=== PATIENT | male | born 1975 | race Hispanic/Latino ===

== ENCOUNTER 2020-09-26 15:05 | Inpatient (IN) | payer OTHER ==
[2020-09-26 16:39] LABS: Absolute Lymphocytes (CBC) 0.9 K/uL (0.7-4.9); Basophils % 0.6 % (0-1.3); Hematocrit 28.3 % (39.6-49.0); Lymphocytes % 7.4 % (15.3-44.8); MPV 8.8 fL (7.6-11.3); RBC Red Blood Cell Count 3.01 M/uL (4.33-5.43)
[2020-09-26 16:40] LABS: Protime INR 1.2
[2020-09-26 17:14] LABS: ALT/SGPT 42 U/L (12-78); AST/SGOT 24 U/L (15-37); Albumin 3.1 g/dL (3.4-5.0); Alkaline Phosphatase 140 U/L (45-117); BUN Blood Urea Nitrogen 126 mg/dL (7-18); Bicarbonate 15 mmol/L (21-32); Bilirubin Direct < 0.1 mg/dL (0-0.2); Bilirubin Total 0.3 mg/dL (0.2-1.0); Glucose Level 92 mg/dL (74-106); Magnesium 1.6 mg/dL (1.8-2.4); NT PRO-BNP 2826 pg/mL (<125); Potassium 4.5 mmol/L (3.5-5.1); Protein, Total 7.5 g/dL (6.4-8.2); Sodium Level 138 mmol/L (136-145); Troponin (Emerg Dept Use Only) 0.02 ng/mL (0.0-0.045)
--- NOTE | 2020-09-26 17:14 | P.PN ---
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 Valle, Htn, & KADEN on CPAP, who had renal panel done on 09/25/20 which showed SCr 9.6 (GFR 6), BUN 119, acidosis, hypoCa, & hyperPO4, & urinalysis showed pyuria, admitted today for further eval & mngt. He told me today that he has had SOB, dec energy, dec appetite & nausea for the past wk. He agreed to hospital admission today. 1. F/u renal panel, iron panel , urine studies, renal US 2. F/u serum iPTH to assess for advanced CKD/ESRD 3. IV fluid hydration overnight unless clinically volume overloaded. 4. If w/ metabolic acidosis, give 1 liter isotonic IV bicarb, but correct hypocalcemia prior. 5. Renal diet Full consult tomorrow.
--- NOTE | 2020-09-26 17:23 | RAD REPORT ---
EXAM DESCRIPTION: Merry Single View09/26/2020 4:35 pm CLINICAL HISTORY: Shortness breath COMPARISON: 2015 FINDINGS: Upper lobe vessels are prominent indicative of pulmonary venous hypertension Lungs appear clear of straight. Heart is mildly to moderately enlarged
[2020-09-26] MEDS ORDERED: NA CHLORIDE 0.9% IV ONE (18:00)
[2020-09-26] MEDS ORDERED: CALCIUM GLUC IV ONE (18:00)
[2020-09-26] MEDS ORDERED: EPOETIN ALFA-EPBX 10,000 UNIT/ML VIAL SQ SCH (18:00)
--- NOTE | 2020-09-26 18:11 | RAD REPORT ---
EXAM DESCRIPTION: USExtrem Venous W Compress Bil09/26/2020 5:52 pm CLINICAL HISTORY: Leg swelling COMPARISON: 2017 FINDINGS: The common femoral, superficial femoral, popliteal and posterior tibial veins bilaterally are compressible and demonstrate augmentation. Doppler demonstrates good flow. IMPRESSION: No evidence of deep venous thrombosis involving either lower extremity.
--- NOTE | 2020-09-26 18:15 | EDPHYS ---
Physician Documentation [facility] Name: Homer Romo Age: 45 yrs Sex: Male : 1975 Arrival Date: 09/26/2020 Time: 15:08 Bed 16 Private MD: ED Physician Toby Pollard HPI: 09/26 16:15 This 45 yrs old Male presents to ER via Ambulatory with complaints of Kidney cp Issue. 16:15 worsening kidney disease. cp 16:15 Onset: The symptoms/episode began/occurred gradually. cp 16:15 The patient has shortness of breath at rest. cp 16:15 Duration: The symptoms are continuous, and are steadily getting worse. The patient's cp shortness of breath is aggravated by light activity. Associated signs and symptoms: Pertinent negatives: chest pain, productive cough, dizziness, fever. Historical: - Allergies: 15:20 No Known Allergies; ph - PMHx: 15:20 Sleep Apnea; Hypertensive disorder; Anxiety; ph - Immunization history:: Client reports receiving the 2nd dose of the Covid vaccine. - Social history:: Smoking status: Patient denies any tobacco usage or history of. ROS: 16:20 Eyes: Negative for injury, pain, redness, and discharge. cp 16:20 Constitutional: Negative for body aches, chills, fever, poor PO intake. 16:20 ENT: Negative for ear pain, sore throat, difficulty swallowing, difficulty handling secretions. 16:20 Cardiovascular: Positive for edema, Negative for chest pain, palpitations. 16:20 Respiratory: Positive for shortness of breath, at rest. Negative for cough, wheezing. 16:20 Abdomen/GI: Negative for abdominal pain, nausea, vomiting, and diarrhea. 16:20 Skin: Negative for rash. 16:20 Neuro: Negative for altered mental status, headache, syncope, weakness. 16:20 All other systems are negative. Exam: 16:25 Constitutional: The patient appears in no acute distress, alert, awake, cp non-diaphoretic, non-toxic, well developed, well nourished, obese. 16:25 Head/Face: Normocephalic, atraumatic. cp 16:25 Eyes: Periorbital structures: appear normal, Pupils: equal, round, and reactive to light and accomodation, Extraocular movements: intact throughout, Conjunctiva: normal, no exudate, no injection, Sclera: no appreciated abnormality, Lids and lashes: appear normal, bilaterally. 16:25 ENT: External ear(s): are unremarkable, Nose: is normal, Mouth: Lips: moist, Oral mucosa: moist, Posterior pharynx: Airway: no evidence of obstruction, patent. 16:25 Neck: ROM/movement: is normal, is supple, without pain, no range of motions limitations. 16:25 Chest/axilla: Inspection: normal, Palpation: is normal, no crepitus, no tenderness. 16:25 Cardiovascular: Rate: normal, Rhythm: regular, Edema: ankle edema, that is mild, JVD: is not appreciated. 16:25 Respiratory: the patient does not display signs of respiratory distress, Respirations: labored breathing, is not present, intercostal retractions, are absent, shallow respirations, that is mild, Breath sounds: are clear throughout, no decreased breath sounds, no stridor, no wheezing. 16:25 Abdomen/GI: Inspection: obese Palpation: abdomen is soft and non-tender, in all quadrants. 16:25 Back: pain, is absent, ROM is normal. 16:25 Skin: cellulitis, is not appreciated, no rash present. 16:25 Neuro: Orientation: to person, place \T\ time. Mentation: is normal, Cerebellar function: is grossly normal, Motor: moves all fours, strength is normal, Sensation: is normal. 16:27 ECG was reviewed by the Attending Physician. Vital Signs: 15:17 BP 132 / 83; Pulse 86; Resp 22; Temp 97.6; Pulse Ox 100% on R/A; Weight 121.56 kg; ph Height 5 ft. 6 in. (167.64 cm); Pain 0/10; 17:05 BP 139 / 72; Pulse 82; Resp 17; Pulse Ox 99% on R/A; tw2 18:12 BP 140 / 105; Pulse 89; Resp 17; Pulse Ox 98% on R/A; tw2 19:14 BP 135 / 86; Pulse 93; Resp 18 S; Pulse Ox 99% on R/A; ad5 15:17 Body Mass Index 43.26 (121.56 kg, 167.64 cm) ph MDM: 16:09 Patient medically screened. cp 18:15 Data reviewed: vital signs, nurses notes, lab test result(s), EKG, radiologic studies, cp plain films. 18:15 Test interpretation: by ED physician or midlevel provider: ECG, plain radiologic cp studies. Physician consultation: Alejo BARILLAS was called at 18:15, was contacted at 18:15, regarding admission, to the telemetry unit. patient's condition, and will see patient in ED, shortly. 09/26 16:13 Order name: Basic Metabolic Panel cp 09/26 16:13 Order name: CBC with Diff cp 09/26 16:13 Order name: LFT's cp 09/26 16:13 Order name: Magnesium cp 09/26 16:13 Order name: NT PRO-BNP; Complete Time: 17:16 cp 09/26 17:38 Interpretation: Abnormal: NT PRO-BNP 2826. cp 09/26 16:13 Order name: PT-INR; Complete Time: 16:56 cp 09/26 16:13 Order name: Troponin (emerg Dept Use Only) cp 09/26 16:14 Order name: Basic Metabolic Panel; Complete Time: 17:16 EDMS 09/26 17:17 Interpretation: Normal except: CL 109; CO2 15; BUN 126; CRE 9.71; GFR 6; CA 5.3. cp 09/26 16:14 Order name: CBC with Automated Diff; Complete Time: 16:56 EDMS 09/26 16:57 Interpretation: Normal except: WBC 12.10; RBC 3.01; HGB 9.4; HCT 28.3; MCV 93.7; JOELLEN% cp 75.3; LYM% 7.4; EOSINOPHIL % 8.4; NEUT A 9.1; EOSA 1.0. 09/26 16:14 Order name: Liver (Hepatic) Function; Complete Time: 17:16 EDMS 09/26 17:38 Interpretation: Normal except: ALK 140; ALB 3.1; GLOB 4.4; A/G 0.7. cp 09/26 16:14 Order name: Magnesium; Complete Time: 17:16 EDMS 09/26 17:17 Interpretation: Abnormal: MG 1.6. cp 09/26 16:14 Order name: Troponin (Emerg Dept Use Only); Complete Time: 17:16 EDMS 09/26 17:10 Order name: Ferritin EDCO 09/26 17:10 Order name: Potassium EDMS 09/26 16:13 Order name: XRAY Chest (1 view); Complete Time: 17:37 cp 09/26 16:14 Order name: US Extremity Venous W Compression Harsha; Complete Time: 18:37 cp 09/26 17:10 Order name: Osmolality, Urine EDMS 09/26 17:10 Order name: PTH Intact EDMS 09/26 17:10 Order name: Transferrin Sat/Iron Binding EDMS 09/26 17:10 Order name: Ur Protein EDMS 09/26 17:10 Order name: UR SODIUM EDMS 09/26 17:10 Order name: Vitamin D, 25 (OH), TOTAL EDMS 09/26 17:12 Order name: Magnesium EDMS 09/26 17:12 Order name: Renal Panel EDMS 09/26 17:12 Order name: CBC with Automated Diff EDMS 09/26 17:15 Order name: Urinalysis W/Microscopic EDMS 09/26 17:47 Order name: Phosphorus EDMS 09/26 17:50 Order name: Thyroid Stimulating Hormone EDMS 09/26 20:36 Order name: SARS-COV-2 RT PCR EDMS 09/26 16:13 Order name: EKG; Complete Time: 16:14 cp 09/26 16:13 Order name: Cardiac monitoring; Complete Time: 16:28 cp 09/26 16:13 Order name: EKG - Nurse/Tech; Complete Time: 16:28 cp 09/26 16:13 Order name: IV Saline Lock; Complete Time: 16:28 cp 09/26 16:13 Order name: Labs collected and sent; Complete Time: 16:28 cp 09/26 16:13 Order name: O2 Per Protocol; Complete Time: 16:28 cp 09/26 16:13 Order name: O2 Sat Monitoring; Complete Time: 16:28 cp 09/26 17:14 Order name: Renal Ultrasound-Complete; Complete Time: 18:37 EDMS 09/26 17:48 Order name: Echo without Doppler (2D) EDMS EC:27 Rate is 88 beats/min. Rhythm is regular. AL interval is normal. QRS interval is normal. cp QT interval is normal. T waves are Inverted in lead aVR. Interpreted by me. Reviewed by me. Administered Medications: 18:20 Drug: Lasix (furosemide) 80 mg Route: IVP; Site: left antecubital; tw2 18:44 Follow up: Response: No adverse reaction tw2 18:28 Drug: Calcium Gluconate 1 grams Route: IVPB; Infused Over: 60 mins; Site: left tw2 antecubital; 19:37 Follow up: Response: No adverse reaction; IV Status: Completed infusion ad5 Disposition: 09/27 07:06 Co-signature as Attending Physician, Toby Pollard MD I agree with the assessment and kdr plan of care. Disposition Summary: 09/26/20 18:14 Hospitalization Ordered Hospitalization Status: Inpatient Admission cp Provider: Andry Ayala cp Location: Telemetry/[facility] (Inpatient) cp Condition: Stable cp Problem: new cp Symptoms: are unchanged cp Bed/Room Type: Standard cp Room Assignment: 209(09/26/20 19:46) mw Diagnosis - End stage renal disease cp Forms: - Medication Reconciliation Form cp - SBAR form cp Signatures: Dispatcher [employer] EDMS Disha Croft RN RN mw Rittger, Kevin, MD MD kdr Alejo Andino, FRONT DESK TEAM MEMBER-C FRONT DESK TEAM MEMBER-Cla1 Estella Casarez RN RN ph Hay Tapia PA PA cp Erna Hill RN RN tw2 Kyree Pike ad5 Corrections: (The following items were deleted from the chart) 09/26 17:17 17:16 Normal except: CL 109; CO2 15; BUN 126; CRE 9.71; GFR 6. cp cp 19:33 19:25 CORONAVIRUS+LAB.TESHA ordered. EDCO EDMS 19:46 18:14 cp 23:38 09/25 16:20 Constitutional: Negative for body aches, chills, fever, poor PO intake, cp cp 09/26 23:38 09/25 16:20 Eyes: Negative for injury, pain, redness, and discharge, cp cp 09/26 23:38 09/25 16:20 ENT: Negative for ear pain, sore throat, difficulty swallowing, difficulty cp handling secretions, cp 09/26 23:38 09/25 16:20 Cardiovascular: Positive for edema, Negative for chest pain, palpitations, cp cp 09/26 23:38 09/25 16:20 Respiratory: Positive for shortness of breath, at rest. Negative for cough, cp wheezing, cp 09/26 23:38 09/25 16:20 Abdomen/GI: Negative for abdominal pain, nausea, vomiting, and diarrhea, cp cp 09/26 23:38 09/25 16:20 Neuro: Negative for altered mental status, headache, syncope, weakness, cp cp 09/26 22:09/25 16:20 Skin: Negative for rash, cp cp 09/26 22:09/25 16:20 All other systems are negative, cp cp
--- NOTE | 2020-09-26 18:15 | ER ---
Nurse's Notes [facility] Name: Homer Romo Age: 45 yrs Sex: Male : 1975 Arrival Date: 09/26/2020 Time: 15:08 Bed 16 Private MD: Diagnosis: End stage renal disease Presentation: 09/26 15:17 Chief complaint: Patient states: Sent by Dr Sharpe for decreased kidney function. ph Coronavirus screen: Client denies travel out of the [place] in the last 14 days. At this time, the client does not indicate any symptoms associated with coronavirus-19. Ebola Screen: No symptoms or risks identified at this time. Initial Sepsis Screen: Does the patient meet any 2 criteria? No. Patient's initial sepsis screen is negative. Does the patient have a suspected source of infection? No. Patient's initial sepsis screen is negative. Risk Assessment: Do you want to hurt yourself or someone else? Patient reports no desire to harm self or others. Onset of symptoms was September 26, 2020. 15:17 Method Of Arrival: Ambulatory ph 15:17 Acuity: EZRA 3 ph Historical: - Allergies: 15:20 No Known Allergies; ph - PMHx: 15:20 Sleep Apnea; Hypertensive disorder; Anxiety; ph - Immunization history:: Client reports receiving the 2nd dose of the Covid vaccine. - Social history:: Smoking status: Patient denies any tobacco usage or history of. Screenin:00 Abuse screen: Denies threats or abuse. Nutritional screening: No deficits noted. tw2 Tuberculosis screening: No symptoms or risk factors identified. Fall Risk None identified. Assessment: 16:05 General: Appears in no apparent distress. obese, well groomed, Behavior is calm, tw2 cooperative, appropriate for age. Pain: Denies pain. Neuro: Level of Consciousness is awake, alert, obeys commands, Oriented to person, place, time, situation. Cardiovascular: Patient's skin is warm and dry. Cardiovascular: Edema is 3+ to left lower thigh, left knee, left midcalf, left ankle, right lower thigh, right knee, right midcalf and right ankle. Respiratory: Airway is patent Respiratory effort is even, unlabored, Respiratory pattern is regular, symmetrical. GI: No signs and/or symptoms were reported involving the gastrointestinal system. Abdomen is non-distended, obese. : No signs and/or symptoms were reported regarding the genitourinary system. EENT: No signs and/or symptoms were reported regarding the EENT system. Derm: Musculoskeletal: Range of motion: intact in all extremities. 17:05 Reassessment: Patient appears in no apparent distress at this time. No changes from tw2 previously documented assessment. Patient and/or family updated on plan of care and expected duration. Pain level reassessed. Patient is alert, oriented x 3, equal unlabored respirations, skin warm/dry/pink. 17:25 Reassessment: US at bedside at this time, provider at bedside at this time. tw2 18:12 Reassessment: Patient appears in no apparent distress at this time. No changes from tw2 previously documented assessment. Patient and/or family updated on plan of care and expected duration. Pain level reassessed. Patient is alert, oriented x 3, equal unlabored respirations, skin warm/dry/pink. 19:14 Reassessment: Patient appears in no apparent distress at this time. Patient and/or ad5 family updated on plan of care and expected duration. Pain level reassessed. Patient is alert, oriented x 3, equal unlabored respirations, skin warm/dry/pink. Vital Signs: 15:17 BP 132 / 83; Pulse 86; Resp 22; Temp 97.6; Pulse Ox 100% on R/A; Weight 121.56 kg; ph Height 5 ft. 6 in. (167.64 cm); Pain 0/10; 17:05 BP 139 / 72; Pulse 82; Resp 17; Pulse Ox 99% on R/A; tw2 18:12 BP 140 / 105; Pulse 89; Resp 17; Pulse Ox 98% on R/A; tw2 19:14 BP 135 / 86; Pulse 93; Resp 18 S; Pulse Ox 99% on R/A; ad5 15:17 Body Mass Index 43.26 (121.56 kg, 167.64 cm) ph ED Course: 15:08 Patient arrived in ED. ds1 15:20 Triage completed. ph 15:21 Arm band placed on. ph 16:00 Erna Hill RN is Primary Nurse. tw2 16:00 Bed in low position. Call light in reach. Pulse ox on. NIBP on. tw2 16:05 Page, Hay, PA is PHCP. cp 16:05 Toby Pollard MD is Attending Physician. cp 16:35 XRAY Chest (1 view) In Process Unspecified. EDMS 17:16 Notified Nurse Practitioner and/or Physician Customs Brokerage Manager of a critical lab result(s), aa5 Creatinine 9.71 and Calcium 5.3. 17:51 US Extremity Venous W Compression Harsha In Process Unspecified. EDMS 17:51 Renal Ultrasound-Complete In Process Unspecified. EDMS 18:13 Andry Ayala MD is Hospitalizing Provider. cp 20:42 No provider procedures requiring assistance completed. Patient admitted, IV remains in ad5 place. Administered Medications: 18:20 Drug: Lasix (furosemide) 80 mg Route: IVP; Site: left antecubital; tw2 18:44 Follow up: Response: No adverse reaction tw2 18:28 Drug: Calcium Gluconate 1 grams Route: IVPB; Infused Over: 60 mins; Site: left tw2 antecubital; 19:37 Follow up: Response: No adverse reaction; IV Status: Completed infusion ad5 Outcome: 18:14 Decision to Hospitalize by Provider. cp 20:42 Admitted to Med/surg accompanied by nurse, via stretcher, with chart, Report called to ad5 MANOJ Lewis 20:42 Condition: stable 20:42 Instructed on the need for admit, Demonstrated understanding of instructions. 20:43 Patient left the ED. ad5 Signatures: Dispatcher [employer] EDGA Caroline Wall ds1 Loretta Melendez, RN RN aa5 Estella Casarez RN RN Hay Delarosa PA PA cp Erna Hill RN RN tw2 Kyree Pike ad5
--- NOTE | 2020-09-26 18:15 | RAD REPORT ---
EXAM DESCRIPTION: US - Renal Ultrasound-Complete - 09/26/2020 5:52 pm CLINICAL HISTORY: Chronic renal disease COMPARISON: None FINDINGS: Right kidney is poorly visualized. It appears to measure 9.5 centimeters with an increased echotexture. Hydronephrosis is not seen. Evaluation of the left kidney is nondiagnostic Bladder is poorly visualized IMPRESSION: Limited exam Increased right renal echotexture consistent with chronic disease.
[2020-09-26] MEDS ORDERED: FUROSEMIDE 100 MG/10 ML VIAL IV ONE (18:40)
[2020-09-26] MEDS ORDERED: CALCIUM GLUCONATE 1 GM IVPB 1 GM/50 ML BAG IV ONE (18:40)
[2020-09-26 19:20] LABS: Potassium 4.8 mmol/L (3.5-5.1)
--- NOTE | 2020-09-26 20:12 | P.HP ---
Certification for Inpatient Patient admitted to: Inpatient With expected LOS: >2 Midnights Patient will require the following post-hospital care: None Practitioner: I am a practitioner with admitting privileges, knowledge of patient current condition, hospital course, and medical plan of care. Services: Services provided to patient in accordance with Admission requirements found in Title 42 Section 412.3 of the Code of Federal Regulations Patient History Date of Service: 09/26/20 Primary Care Provider: Dr. Valle Reason for admission: Acute renal failure History of Present Illness: 45-year-old male with history of CKD 4, hypertension presents emergency department after having outpatient labs with elevated creatinine. Patient was evaluated in the emergency department, labs significant for white blood cell count 12.1 hemoglobin 9.4 hematocrit 28.3 BUN 126 creatinine 9.7 GFR 6 calcium 5.3, magnesium 1.6. Chest x-ray unremarkable BNP 2826. Case was discussed with nephrology who has placed additional orders for admission, patient will be diuresed overnight and likely will require dialysis. Allergies No Known Allergies Allergy (Unverified 01/19/17 23:31) - Past Medical/Surgical History -: Hypertension -: ESRD -: Knee surgery Psychosocial/ Personal History: Employed at the hospital, lives with family - Family History Mother -: Cancer Father -: Lung disease, Cancer, Kidney disease Brother -: Cancer Sister -: Cancer - Social History Smoking Status: Never smoker Alcohol use: No CD- Drugs: No Caffeine use: No Place of Residence: Home Review of Systems Unremarkable Physical Examination - Physical Exam General: Alert, In no apparent distress, Oriented x3 HEENT: Atraumatic, PERRLA, Mucous membr. moist/pink, EOMI, Sclerae nonicteric Neck: Supple, 2+ carotid pulse no bruit, No LAD, Without JVD or thyroid abnormality Respiratory: Clear to auscultation bilaterally, Normal air movement Cardiovascular: Regular rate/rhythm, Normal S1 S2 Gastrointestinal: Normal bowel sounds, No tenderness Musculoskeletal: No tenderness Integumentary: No rashes Neurological: Normal gait, Normal speech, Normal strength at 5/5 x4 extr, Normal tone, Normal affect Lymphatics: No axilla or inguinal lymphadenopathy - Studies Laboratory Data (last 24 hrs) 09/26/20 18:20: Potassium 4.8 09/26/20 16:27: PT 13.8 H, INR 1.20 09/26/20 16:27: WBC 12.10 H, Hgb 9.4 L, Hct 28.3 L, Plt Count 298 09/26/20 16:27: Sodium 138, Potassium 4.5, BUN 126 H, Creatinine 9.71 H*, Glucose 92, Magnesium 1.6 L, Total Bilirubin 0.3, AST 24, ALT 42, Alkaline Phosphatase 140 H Assessment and Plan - Plan Assessment Acute worsening of CKD 4 to ESRD Normocytic anemia Hypocalcemia Hypertension Plan Acute worsening of CKD 4 to ESRD: Case was discussed with nephrology, nep hrology prefers diuresis this evening with Lasix/metolazone, patient will likely require dialysis. Patient made to be NPO past midnight for possibility of need for dialysis catheter placement, SCDs for DVT prophylaxis. Appreciate further input from nephrology. Stable at this time, not hyperkalemia. Daily labs. Normocytic anemia: Likely related to CKD. Additional labs ordered. Hypocalcemia: Patient given calcium for nephrology, will monitor daily labs Hypertension: Continue medication adjust as necessary. Discharge Plan: Home Plan to discharge in: Greater than 2 days - Advance Directives Does patient have a Living Will: No Does patient have a Durable POA for Healthcare: No - Code Status/Comfort Care Code Status Assessed: Yes (Full code) Critical Care: No Time Spent Managing Pts Care (In Minutes): 55
[2020-09-26 20:14] LABS: Thyroid Stimulating Hormone 2.21 uIU/mL (0.360-3.740)
[2020-09-26 20:15] LABS: Phosphorus 10.1 mg/dL (2.5-4.9)
[2020-09-26] MEDS ORDERED: ONDANSETRON 4 MG/2 ML VIAL IV PRN (20:31)
[2020-09-26] MEDS ORDERED: ACETAMINOPHEN 500 MG TAB PO PRN (20:31)
[2020-09-26 21:16] LABS: Urine Appearance CLEAR (Clear); Urine Bilirubin NEGATIVE (Negative); Urine Blood 2+ (Negative); Urine Color YELLOW (Yellow); Urine Glucose NEGATIVE (Negative); Urine Protein 3+ (Negative); Urine Urobilinogen 0.2 mg/dL (0.2-1.0); Urine pH 5.5 (5.0-7.0)
[2020-09-26 21:47] LABS: Urine Bacteria <20 /HPF (NONE SEEN); Urine RBC <5 /HPF (NONE SEEN)
[2020-09-26] MEDS: METOLAZONE 5 MG TABLET PO SCH (21:53)
[2020-09-26] MEDS: NA CIT/CITRIC AC 30 ML ORAL UDC PO SCH (21:55)
[2020-09-26] MEDS: FUROSEMIDE 40 MG/4 ML VIAL IV SCH (21:56)
[2020-09-26] MEDS: ATORVASTATIN 20 MG TAB PO SCH (22:38)
[2020-09-26] MEDS: carvediloL 12.5 MG TAB PO SCH (22:38)
[2020-09-27 05:24] LABS: Absolute Lymphocytes (CBC) 0.9 K/uL (0.7-4.9); Basophils % 0.5 % (0-1.3); Hematocrit 25.9 % (39.6-49.0); Lymphocytes % 8.4 % (15.3-44.8); MPV 8.9 fL (7.6-11.3); RBC Red Blood Cell Count 2.78 M/uL (4.33-5.43)
[2020-09-27 05:35] LABS: Albumin 2.8 g/dL (3.4-5.0); Magnesium 1.6 mg/dL (1.8-2.4)
[2020-09-27 05:38] LABS: Phosphorus 10.2 mg/dL (2.5-4.9)
--- NOTE | 2020-09-27 05:56 | P.CNS ---
Date of Consult: 09/27/20 Reason for Consult: Renal failure Requesting Physician: Andry Ayala Primary Care Provider: Dr. Valle Chief Complaint: Acute renal failure History of Present Illness: 45M w/ PMHx of proteinuric CKD4, presumed to be 2/2 Htn nephrosclerosis vs obesity-related secondary FSGS, SCr 3.3 (GFR 21) in Dec 2019, primary nephro: Dr. Valle, Htn, & KADEN on CPAP, who had renal panel done on 09/25/20 which showed SCr 9.6 (GFR 6), BUN 119, acidosis, hypoCa, & hyperPO4, & urinalysis showed pyuria, now admitted for further eval & mngt. He reports having SOB, dec energy, dec appetite & nausea for the past wk. 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, lives with family - Family History Mother Medical History: Cancer Father Medical History: Lung disease, Cancer, Kidney disease Brother Medical History: Cancer Sister Medical History: Cancer - Social History Alcohol use: No CD- Drugs: No Caffeine use: No Place of Residence: Home Review of Systems General: Weakness Eyes: Unremarkable ENT: Unremarkable Respiratory: Shortness of Breath Cardiovascular: Unremarkable Gastrointestinal: Nausea, Unremarkable (Anorexia) Genitourinary: Unremarkable Musculoskeletal: Pedal edema Integumentary: Unremarkable Neurological: Weakness Lymphatics: Unremarkable Physical Examination Temp Pulse Resp BP Pulse Ox 97.9 F 99 H 20 129/79 96 09/26/20 20:44 09/26/20 22:38 09/26/20 20:44 09/26/20 22:38 09/26/20 20:44 General: In no apparent distress HEENT: Atraumatic, Normocephalic Neck: Supple, JVD not distended Respiratory: Crackles/rales, Other (symmetric chest expansion) Cardiovascular: Normal S1 S2, No rubs, No murmurs Gastrointestinal: Soft and benign, Non-distended Musculoskeletal: Swelling Integumentary: No warmth Neurological: Normal speech, Normal tone Lymphatics: No axilla or inguinal lymphadenopathy Urinary: Other (no bladder distention) External genitalia: Deferred Rectal: Deferred Laboratory Data (last 24 hrs) 09/26/20 18:20: Potassium 4.8 09/26/20 16:27: Phosphorus 10.1 H* 09/26/20 16:27: PT 13.8 H, INR 1.20 09/26/20 16:27: WBC 12.10 H, Hgb 9.4 L, Hct 28.3 L, Plt Count 298 09/26/20 16:27: Sodium 138, Potassium 4.5, BUN 126 H, Creatinine 9.71 H*, Glucose 92, Magnesium 1.6 L, Total Bilirubin 0.3, AST 24, ALT 42, Alkaline Phosphatase 140 H Conclusions/Impression: # CKD4/ESRD GFR today at 6 ml/min Avoid Na-containing IV fluid d/t high BNP continue diuretics as below Renal ultrasound shows advanced CKD findings with smaller sized kidneys Serum intact PTH level also significantly elevated indicative of advanced CKD Patient agreed to initiate chronic dialysis due to presence of uremic symptoms and volume overload Insert PermCath tomorrow morning Initiate chronic hemodialysis when PermCath is in place, HD daily for the first 3 days then 3 times per week thereafter Renal diet Monitor renal panel Preserve non-dominant LUE for AVF planning - avoid BP cuff, bld draws, intravascular cannulation # Anemia Normocytic, normal RDW F/u TSH & iron panel Retracrit SQ 1st dose received on 09/26/20 # Htn Monitor Avoid ACEI/ARB/MRA while not on maintenance dialysis # Volume overload BNP sig elevated Trop neg Lasix 80 mg IV bid + Metolazone 5 mg po daily Chronic hemodialysis to start tomorrow # Acidosis Bicitra 30 ml po qid # Hypocalcemia Ca gluc IV ordered # HyperPO4 Start sevelamer po tidwm # Secondary hyperPTH Start calcitriol po daily # Vit D deficiency Start D3 5000 IU po daily # HypoMg Monitor
[2020-09-27] MEDS: FUROSEMIDE 40 MG/4 ML VIAL IV SCH ×2 (08:41→16:34)
[2020-09-27] MEDS: METOLAZONE 5 MG TABLET PO SCH (08:42)
[2020-09-27] MEDS: NA CIT/CITRIC AC 30 ML ORAL UDC PO SCH ×4 (08:42→21:32)
[2020-09-27] MEDS: carvediloL 12.5 MG TAB PO SCH ×2 (08:42→21:32)
--- NOTE | 2020-09-27 10:42 | EKG ---
Test Date: 2020-09-26 Test Time: 16:20:44 [place] Floor Desk Clerk: JOZEF MEASUREMENT RESULTS: Intervals: Rate: 88 ND: 164 QRSD: 92 QT: 410 QTc: 496 [place]: P: 55 ND: 164 QRS: -26 T: 52 INTERPRETIVE STATEMENTS: Normal sinus rhythm Prolonged QT Abnormal ECG Compared to ECG 01/19/2017 21:32:34 Prolonged QT interval now present Sinus tachycardia no longer present Incomplete right bundle-branch block no longer present Left anterior fascicular block no longer present Myocardial infarct finding no longer present Electronically Signed On 09-27-20 10:41:10 CDT by Ang Zee
--- NOTE | 2020-09-27 14:39 | P.PN ---
Subjective Date of Service: 09/27/20 Primary Care Provider: Dr. Valle Chief Complaint: Acute renal failure Subjective: No new changes (feels about the same, no significant change. breathing ok, no pain, no change in urine output) Review of Systems 10-point ROS is otherwise unremarkable Physical Examination - Vital Signs Temperature: 98.0 F Blood Pressure: 111/62 Pulse: 88 Respirations: 21 Pulse Ox (%): 98 - Studies Laboratory Data (last 24 hrs) 09/26/20 18:20: Potassium 4.8 09/26/20 16:27: Phosphorus 10.1 H* 09/26/20 16:27: PT 13.8 H, INR 1.20 09/26/20 16:27: WBC 12.10 H, Hgb 9.4 L, Hct 28.3 L, Plt Count 298 09/26/20 16:27: Sodium 138, Potassium 4.5, BUN 126 H, Creatinine 9.71 H*, Glucose 92, Magnesium 1.6 L, Total Bilirubin 0.3, AST 24, ALT 42, Alkaline Phosphatase 140 H Assessment & Plan Physician Review Additional Text: Physical Exam General: Alert, NAD, AAOx3, morbidly obese HEENT: Normal conjunctiva, sclera anicteric Respiratory: Clear to auscultation bilaterally, Normal air movement Cardiovascular: Regular rate/rhythm, Normal S1 S2, 1+ edema, L>R Gastrointestinal: Soft, nontender, nondistended Musculoskeletal: No joint tenderness Integumentary: No rashes Problem list Acute worsening of CKD 4 to ESRD Normocytic anemia Hypocalcemia Hyperphosphatemia Hypertension -Nephrology consulted, continue Lasix/metolazone -will likely need dialysis. Nephrology to further discuss with patient today -Discussed with general surgery, would not have time for dialysis catheter placement today -Confirm home medications, restart as appropriate -unclear etiology of MELINA or CKD, pt has significant family history, denies diabetes or NSAID usage Dispo: anticipate hospitalization > 2 days, will likely need dialysis Time Spent Managing Pts Care (In Minutes): 35
[2020-09-27] MEDS ORDERED: CALCIUM GLUC 10% INJ 9.3 MEQ in NA CHLORIDE 0.9% 100 ML IV ONE (20:47)
[2020-09-27] MEDS: CALCITROL 0.25 MCG CAP PO SCH (21:33)
[2020-09-27] MEDS: SEVELAMER CARBONATE 800 MG TABLET PO SCH (21:33)
[2020-09-27] MEDS: ATORVASTATIN 20 MG TAB PO SCH (21:33)
[2020-09-28] MEDS ORDERED: CALCIUM GLUCONATE 1 GM IVPB 1 GM/50 ML BAG IV ONE ×2 (01:13→01:41)
--- NOTE | 2020-09-28 05:36 | P.PN ---
Subjective Date of Service: 09/28/20 Primary Care Provider: Dr. Valle Chief Complaint: Acute renal failure Patient seen and examined while he was receiving HD today. No complaints of increased shortness of breath. Physical Examination - Vital Signs Temperature: 98 F Blood Pressure: 130/61 Pulse: 74 Respirations: 19 Pulse Ox (%): 98 - Physical Exam General: Other (appears as stated age) HEENT: Atraumatic, Normocephalic Neck: Supple, JVD not distended Respiratory: Diminished Cardiovascular: No rubs, No murmurs Gastrointestinal: Soft and benign, Non-distended Musculoskeletal: Swelling Integumentary: No warmth Neurological: Normal speech, Normal tone Lymphatics: No axilla or inguinal lymphadenopathy Urinary: Other (no bladder distention) External genitalia: Deferred Rectal: Deferred Assessment And Plan - Plan # ESRD presumed to be 2/2 Htn nephrosclerosis vs obesity-related secondary FSGS Renal ultrasound shows advanced CKD findings with smaller sized kidneys Serum intact PTH level also significantly elevated indicative of advanced CKD Chronic HD initiated on 09/28/2020, HD 2 hours a day, HD 3 hours tomorrow, then HD 3 hours on day 3, then 3 times a week thereafter starting next week HD access: TDC Nephro-Gina by mouth daily Renal diet Dietitian consulted to help patient with renal diet education Follow-up with leather case finisher regarding outpatient dialysis placement Continue Lasix as below Monitor renal panel Preserve non-dominant LUE for AVF planning - avoid BP cuff, bld draws, intravascular cannulation # Anemia Normocytic, normal RDW TSH wnl Iron panel shows iron deficiency - start Ferrlecit 125 mg IV after HD 8 doses Cont Retracrit 10T u SQ 3x/wk, started on 09/26/20 # Htn Monitor Avoid ACEI/ARB/MRA while not on maintenance dialysis # Volume overload BNP sig elevated Trop neg Cont Lasix 20 mg po bid Further correction via dialysis # Acidosis Bicitra 30 ml po qid Further correction via dialysis # Hypocalcemia Ca gluc IV received today Further correction via dialysis # HyperPO4 Cont sevelamer po tidwm # Secondary hyperPTH Cont calcitriol po daily # Vit D deficiency Cont D3 5000 IU po daily Recheck serum 25OH D level in 3 months # HypoMg Received IV Mg repletion today Monitor/replete prn Physician Review Additional Text: Physical Exam General: Alert, NAD, AAOx3, morbidly obese HEENT: Normal conjunctiva, sclera anicteric Respiratory: Clear to auscultation bilaterally, Normal air movement Cardiovascular: Regular rate/rhythm, Normal S1 S2, 1+ edema, L>R Gastrointestinal: Soft, nontender, nondistended Musculoskeletal: No joint tenderness Integumentary: No rashes Problem list Acute worsening of CKD 4 to ESRD Normocytic anemia Hypocalcemia Hyperphosphatemia Hypertension -Nephrology consulted, continue Lasix/metolazone -will likely need dialysis. Nephrology to further discuss with patient today -Discussed with general surgery, would not have time for dialysis catheter placement today -Confirm home medications, restart as appropriate -unclear etiology of MELINA or CKD, pt has significant family history, denies diabetes or NSAID usage Dispo: anticipate hospitalization > 2 days, will likely need dialysis
[2020-09-28 06:28] LABS: MPV 9.2 fL (7.6-11.3); RBC Red Blood Cell Count 2.68 M/uL (4.33-5.43)
[2020-09-28 07:04] LABS: Albumin 2.7 g/dL (3.4-5.0); Magnesium 1.7 mg/dL (1.8-2.4); Phosphorus 9.6 mg/dL (2.5-4.9); Potassium 3.6 mmol/L (3.5-5.1)
[2020-09-28] MEDS: SEVELAMER CARBONATE 800 MG TABLET PO SCH ×3 (07:52→17:14)
[2020-09-28] MEDS: carvediloL 12.5 MG TAB PO SCH ×2 (07:52→23:02)
[2020-09-28] MEDS ORDERED: NA CHLORIDE 0.9% 500 ML ONE (08:36)
[2020-09-28] MEDS ORDERED: NS 0.9% VIAL 10 ML ONE ×2 (08:57→09:45)
[2020-09-28] MEDS ORDERED: NA CHLORIDE 0.9% 100 ML IV ONE (08:58)
[2020-09-28] MEDS: METOLAZONE 5 MG TABLET PO SCH (09:00)
[2020-09-28] MEDS: FUROSEMIDE 40 MG/4 ML VIAL IV SCH ×2 (09:00→17:14)
[2020-09-28] MEDS ORDERED: propofoL 200 MG/20 ML VIAL IV ONE ×2 (09:04→09:52)
[2020-09-28] MEDS ORDERED: LIDOCAINE 1% MPF 5 ML VIAL ONE (09:05)
[2020-09-28] MEDS ORDERED: FENTANYL CITR 100 MCG/2 ML ONE (09:05)
[2020-09-28] MEDS: CEFAZOLIN SODIUM 1 GM/VIAL ONE ×2 (09:20→09:35)
[2020-09-28] MEDS: HEPARIN 5000 UNIT/ML 1 ML VIAL ONE ×2 (09:32→09:33)
[2020-09-28] MEDS ORDERED: EPHEDRINE SULF 50 MG/ML VIAL ONE (09:45)
--- NOTE | 2020-09-28 09:47 | P.BOP ---
Preoperative diagnosis: ESRD Postoperative diagnosis: same Primary procedure: 1. Placement of hemosplit tunneled Hemodialysis catheter Secondary procedure: 2. Interpretation of fluoroscopy Other procedure(s): 3. Right neck ultrasound Estimated blood loss: <10cc Specimen: none Findings: as above Anesthesia: General Complications: None Transferred to: Recovery Room Condition: Good
[2020-09-28] MEDS ORDERED: HYDROCODONE/APAP 5/325 MG TAB PO PRN (09:58)
--- NOTE | 2020-09-28 10:30 | RAD REPORT ---
EXAM DESCRIPTION: RAD - Fluoroscopy <1 Hour - 09/28/2020 10:02 am CLINICAL HISTORY: HEMODIALYSIS CATH PLACEMENT COMPARISON: No comparisons FINDINGS: Seventeen intraoperative fluoroscopic images were obtained demonstrating placement of a ri ght IJ approach dialysis catheter. None demonstrate the final tip position. Dose: 37.5mGy. Fluoro time: 0.7 minutes IMPRESSION: Intraoperative fluoroscopic images from a right dialysis catheter placement. Reference f orthcoming chest radiograph for tip location which was not included in these images.
--- NOTE | 2020-09-28 10:48 | RAD REPORT ---
EXAM DESCRIPTION: RAD - Chest Single View - 09/28/2020 10:26 am CLINICAL HISTORY: S/P HD CATH INSERTION COMPARISON: Chest Single View dated 09/26/2020; Chest Pa And Lat (2 Views) dated 03/08/2016 FINDINGS: No evidence of edema or pneumonia. Cardiomegaly.No acute osseous abnormality. No significa nt pleural effusions or pneumothorax. Right IJ approach hemodialysis catheter with tip overlying the innominate vein. IMPRESSION: Right IJ approach hemodialysis catheter tip overlies the right innominate vein. Cardiome abelardo. No acute cardiopulmonary disease. No pneumothorax.
[2020-09-28] MEDS ORDERED: CALCIUM GLUC 10% INJ 9.3 MEQ in NA CHLORIDE 0.9% 100 ML IV ONE (11:00)
[2020-09-28] MEDS ORDERED: MAGNESIUM SULFATE 1 gm IVPB 1 GM/100 ML BAG IV ONE (11:01)
--- NOTE | 2020-09-28 11:28 | ECHO ---
HEIGHT: 5 ft 6 in WEIGHT: 310 lb 9.6 oz DATE OF STUDY: 09/27/[address]: Rey Le MD 2-DIMENSIONAL: YES M.MODE: YES DOPPLER: NO COLOR FLOW: NO TDS: NO PORTABLE: NO DEFINITY: NO BUBBLE STUDY: NO DIAGNOSIS: ASSESS FOR CONGESTIVE HEART FAILURE CARDIAC HISTORY: CATHERIZATION: SURGERY: PROSTHETIC VALVE: PACEMAKER: MEASUREMENTS (cm) DIASTOLIC (NORMALS) SYSTOLIC (NORMALS) IVSd 1.2 (0.6-1.2) LA Diam 4.0 (1.9-4.0) LVEF 69% LVIDd 5.6 (3.5-5.7) LVIDs 3.4 (2.0-3.5) %FS 39% LVPWd 1.2 (0.6-1.2) Ao Diam 2.9 (2.0-3.7) 2 DIMENSIONAL ASSESSMENT: RIGHT ATRIUM: NORMAL LEFT ATRIUM: NORMAL RIGHT VENTRICLE: NORMAL LEFT VENTRICLE: NORMAL TRICUSPID VALVE: NORMAL MITRAL VALVE: NORMAL PULMONIC VALVE: NORMAL AORTIC VALVE: NORMAL PERICARDIAL EFFUSION: NONE AORTIC ROOT: NORMAL LEFT VENTRICULAR WALL MOTION: NORMAL DOPPLER/COLOR FLOW: NOT REQUESTED. COMMENTS: NORMAL 2D ECHOCARDIOGRAM WITH DOPPLER. NO WALL MOTION ABNORMALITY. NO EFFUSION. TECHNOLOGIST: Margarita PAEZ
[2020-09-28] MEDS: CALCITROL 0.25 MCG CAP PO SCH (11:42)
[2020-09-28] MEDS: VITAMIN D 5,000 UNIT CAP PO SCH (11:42)
[2020-09-28] MEDS ORDERED: MANNITOL 25% 12.5 GM/50 ML VIAL IV PRN (11:47)
--- NOTE | 2020-09-28 12:49 | OP ---
Date of Procedure: 09/28/2020 Surgeon: Josh Guerra MD Preoperative Diagnosis: End-stage renal disease. Postoperative Diagnosis: End-stage renal disease. Procedures: 1.Placement of a HemoSplit tunneled hemodialysis catheter. 2.Interpretation of fluoroscopy. 3.Right neck ultrasound. Estimated Blood Loss: Less than 10 cc. Anesthesia: General plus local. Catheter: HemoSplit hemodialysis catheter. Indications: This is a case of a male, who comes to us with a renal failure, tunneled hemodialysis c atheter request. Benefits, alternatives, and risks were fully explained to the patient, which includ e, but not limited to infection, bleeding, damage to adjacent structures, anesthesia complication, he mothorax, pneumothorax, pericardiac tamponade, DVTs, pericarditis, AR and even . He also unders tands this may not relieve the symptoms. He might need more than one surgical intervention. He unde rstood, signed a consent. He understands this is temporary catheter. If he continues on permanent d ialysis, he has to go to a vascular surgeon who can put a peripheral access on him. He was advised t o remove this as soon as possible. He understood, signed a consent. Procedure In Detail: The patient was brought to the operating room, placed in supine position. Anes thesia was done without complication. Right neck and chest were prepped and draped in sterile fashio n. A time-out was called. The patient was placed in a lateral position. Right neck ultrasound was done to localize internal jugular vein. It looked viable and patent. At that moment, I proceeded to place an 18-gauge needle in the internal jugular vein at the first attempt. Guidewire was passed th rough. Needle was removed. Catheter was tunneled from the right upper chest into the neck incision. Under fluoroscopy, we put dilators through the guidewire and then an introducer sheath. The guidew emil was removed. The catheter was placed through the introducer sheath and introducer sheath was pee led off. That was done under fluoroscopy. Excellent backflow and inflow. The subcutaneous tissue, closed with a 3-0 chromic and the catheter was secured in place with 3-0 nylon. The patient tolerate d the procedure well. Chest x-ray was ordered stat in recovery room when he went there. Sponge coun t and instrument counts were correct. HM/MODL Voice ID: [id number] Report ID: [id number]
--- NOTE | 2020-09-28 17:28 | P.PN ---
Subjective Date of Service: 09/28/20 Primary Care Provider: Dr. Valle Chief Complaint: Acute renal failure Subjective: Improving (breathing better, swelling improved, no new complaints, dialysis cath placed today, tolerated HD) Review of Systems 10-point ROS is otherwise unremarkable Physical Examination - Vital Signs Temperature: 97.2 F Blood Pressure: 118/74 Pulse: 87 Respirations: 20 Pulse Ox (%): 98 Assessment & Plan Physician Review Additional Text: Physical Exam General: Alert, NAD, AAOx3, morbidly obese HEENT: Normal conjunctiva, sclera anicteric Respiratory: Clear to auscultation bilaterally, diminished bilaterally at bases Cardiovascular: Regular rate/rhythm, Normal S1 S2, 1+ edema L> trace R Gastrointestinal: Soft, nontender, nondistended Musculoskeletal: No joint tenderness Integumentary: No rashes Problem list Acute worsening of CKD 4 to ESRD, requiring HD Normocytic anemia, anemia of chronic disease Hypocalcemia Hyperphosphatemia Hypertension -Nephrology consulted, continue Lasix/metolazone -s/p dialysis cath 09/28, initial HD done 09/28, tolerated well -hep panel sent -unclear etiology of MELINA or CKD, pt has significant family history, denies diabetes or NSAID usage -echo 09/27 normal Dispo: anticipate hospitalization > 2 days, social services assistant consulted to assist with outpatient dialysis hep panel pending Time Spent Managing Pts Care (In Minutes): 35
[2020-09-28] MEDS ORDERED: EPOETIN ALFA-EPBX 10,000 UNIT/ML VIAL SQ SCH ×2 (20:00→22:00)
[2020-09-28] MEDS ORDERED: EPOETIN ALFA 10,000 UNIT/ML VIAL IV ONE (21:30)
[2020-09-28] MEDS ORDERED: EPOETIN ALFA 10,000 UNIT/ML VIAL SQ ONE (21:30)
[2020-09-28] MEDS: ATORVASTATIN 20 MG TAB PO SCH (23:02)
--- NOTE | 2020-09-29 05:53 | P.PN ---
Subjective Date of Service: 09/29/20 Primary Care Provider: Dr. Valle Chief Complaint: Acute renal failure Patient seen and examined while he was receiving HD today. No new complaints. Physical Examination - Vital Signs Temperature: 97.6 F Blood Pressure: 116/66 Pulse: 71 Respirations: 16 Pulse Ox (%): 95 - Physical Exam General: Other (appears as stated age) HEENT: Atraumatic, Normocephalic Neck: Supple, JVD not distended Respiratory: Normal air movement Cardiovascular: No rubs, No murmurs Gastrointestinal: Soft and benign, Non-distended Musculoskeletal: Swelling Integumentary: No warmth Neurological: Normal speech, Normal tone Urinary: Other (no bladder distention) External genitalia: Deferred Rectal: Deferred Assessment And Plan - Plan # ESRD presumed to be 2/2 Htn nephrosclerosis vs obesity-related secondary FSGS Has nephrotic range proteinuria w/ random UPCR 5g Renal ultrasound shows advanced CKD findings with smaller sized kidneys Serum intact PTH level also significantly elevated indicative of advanced CKD Chronic HD initiated on 09/28/2020, daily x 3, day 2 today HD tomorrow, then MWF starting next week HD access: TDC Nephro-Gina by mouth daily Renal diet Dietitian consulted to help patient with renal diet education Follow-up with case loader operator regarding outpatient dialysis placement Continue Lasix as below Monitor renal panel Preserve non-dominant LUE for AVF planning - avoid BP cuff, bld draws, intravascular cannulation # Anemia Normocytic, normal RDW TSH wnl Iron panel shows iron deficiency - started on Ferrlecit 125 mg IV after HD 8 doses Cont Retracrit 10T u SQ 3x/wk, started on 09/26/20 # Htn BP at goal Cont current BP regimen # Volume overload BNP sig elevated Trop neg Cont Lasix 20 mg po bid Further correction via dialysis # Acidosis Improved Bicitra received Further correction via dialysis # Hypocalcemia Ca gluc received Further correction via dialysis # HyperPO4 Cont sevelamer po tidwm # HypoMg Monitor/replete prn # Secondary hyperPTH Cont calcitriol po daily # Vit D deficiency Cont D3 5000 IU po daily Recheck serum 25OH D level in 3 months
[2020-09-29 06:07] LABS: Hematocrit 26.4 % (39.6-49.0); MPV 8.7 fL (7.6-11.3); RBC Red Blood Cell Count 2.79 M/uL (4.33-5.43)
[2020-09-29 06:36] LABS: Albumin 2.7 g/dL (3.4-5.0); Magnesium 1.8 mg/dL (1.8-2.4); Phosphorus 7.6 mg/dL (2.5-4.9); Potassium 3.5 mmol/L (3.5-5.1)
[2020-09-29] MEDS: carvediloL 12.5 MG TAB PO SCH ×2 (09:00→21:38)
[2020-09-29] MEDS: SEVELAMER CARBONATE 800 MG TABLET PO SCH ×3 (10:43→16:58)
[2020-09-29] MEDS: CALCITROL 0.25 MCG CAP PO SCH (10:43)
[2020-09-29] MEDS: MULTIVITAMINS,THERAPEUT 1 TAB PO SCH (10:43)
[2020-09-29] MEDS: FUROSEMIDE 20 MG TABLET PO SCH ×2 (10:43→16:58)
[2020-09-29] MEDS: VITAMIN D 5,000 UNIT CAP PO SCH (10:44)
--- NOTE | 2020-09-29 11:05 | P.PN ---
Subjective Date of Service: 09/29/20 Primary Care Provider: Dr. Valle Chief Complaint: Acute renal failure Subjective: Improving (Tolerated dialysis. Swelling improved, breathing more comfortably. urinating without issue) Review of Systems 10-point ROS is otherwise unremarkable Physical Examination - Vital Signs Temperature: 97.5 F Blood Pressure: 134/72 Pulse: 80 Respirations: 20 Pulse Ox (%): 100 Assessment & Plan Physician Review Additional Text: Physical Exam General: NAD, AAOx3, morbidly obese HEENT: Normal conjunctiva, sclera anicteric Respiratory: Clear to auscultation bilaterally, transmitted upper airway sounds Cardiovascular: Regular rate/rhythm, Normal S1 S2, trace-1+ edema bilaterally Gastrointestinal: Soft, nontender, nondistended Musculoskeletal: No joint tenderness Integumentary: No rashes Problem list Acute worsening of CKD 4 to ESRD, requiring HD Normocytic anemia, anemia of chronic disease Hypocalcemia, vit d deficiency Hyperphosphatemia Hypertension -Nephrology consulted, continue Lasix/metolazone -s/p dialysis cath 09/28, initial HD done 09/28, tolerated well -electrolyte management via dialysis/nephrology -hep panel sent -unclear etiology of MELINA or CKD, pt has significant family history, denies diabetes or NSAID usage, U/S with chronic disease -echo 09/27 normal -symptomatically much improved Dispo: social secretary consulted to assist with outpatient dialysis scheduling, hep panel pending anticipate dc home in next 24-48hrs Time Spent Managing Pts Care (In Minutes): 35
[2020-09-29] MEDS: SOD FERRIC GLUC COMPLX/SUCROSE 125 MG in NA CHLORIDE 0.9% 100 ML IV SCH (12:45)
[2020-09-29] MEDS: ATORVASTATIN 20 MG TAB PO SCH (21:38)
[2020-09-30 01:04] VITALS: BMI 50.0
[2020-09-30 05:40] LABS: Hematocrit 26.9 % (39.6-49.0); MPV 8.7 fL (7.6-11.3); RBC Red Blood Cell Count 2.87 M/uL (4.33-5.43)
[2020-09-30 06:03] LABS: Albumin 2.7 g/dL (3.4-5.0); Magnesium 1.8 mg/dL (1.8-2.4); Phosphorus 5.6 mg/dL (2.5-4.9); Potassium 3.4 mmol/L (3.5-5.1)
[2020-09-30] MEDS: VITAMIN D 5,000 UNIT CAP PO SCH (08:46)
[2020-09-30] MEDS: FUROSEMIDE 20 MG TABLET PO SCH ×2 (08:46→17:06)
[2020-09-30] MEDS: SEVELAMER CARBONATE 800 MG TABLET PO SCH ×3 (08:46→17:06)
[2020-09-30] MEDS: CALCITROL 0.25 MCG CAP PO SCH (08:46)
[2020-09-30] MEDS: carvediloL 12.5 MG TAB PO SCH ×2 (08:47→17:06)
[2020-09-30] MEDS: MULTIVITAMINS,THERAPEUT 1 TAB PO SCH (09:03)
--- NOTE | 2020-09-30 10:31 | P.PN ---
Subjective Date of Service: 09/30/20 Primary Care Provider: Dr. Valle Chief Complaint: Acute renal failure Subjective: Improving (feeling close to his baseline. tolerating HD. yesterday with a few seconds of bradycardia to 40, hypotension during dialysis - pt was asymptomatic. overnight HR: 60.) Review of Systems 10-point ROS is otherwise unremarkable Physical Examination - Vital Signs Temperature: 98.5 F Blood Pressure: 125/60 Pulse: 84 Respirations: 20 Pulse Ox (%): 98 Assessment & Plan Physician Review Additional Text: Physical Exam General: NAD, AAOx3, morbidly obese HEENT: Normal conjunctiva, sclera anicteric Respiratory: Clear to auscultation bilaterally, nonlabored on RA Cardiovascular: Regular rate/rhythm, Normal S1 S2, trace-1+ edema bilaterally Gastrointestinal: Soft, nontender, nondistended Problem list Acute worsening of CKD 4 to ESRD, requiring HD Normocytic anemia, anemia of chronic disease, iron deficiency Hypocalcemia, vit d deficiency Hyperphosphatemia Hypertension -decrease coreg to 6.25 from 12.5 BID -Nephrology consulted, continue Lasix -s/p dialysis cath 09/28, initial HD done 09/28, tolerated well -electrolyte management via dialysis/nephrology -hep panel sent / results pending -iv iron started 09/28 -unclear etiology of MELINA or CKD, pt has significant family history, denies diabetes or NSAID usage, U/S with chronic disease. workup per nephrology -echo 09/27 normal -symptomatically much improved Dispo: hospice social worker consulted to assist with outpatient dialysis scheduling, hep panel pending anticipate dc home on Monday 10/02 Time Spent Managing Pts Care (In Minutes): 35
[2020-09-30] MEDS: SOD FERRIC GLUC COMPLX/SUCROSE 125 MG in NA CHLORIDE 0.9% 100 ML IV SCH (12:15)
[2020-09-30] MEDS: ATORVASTATIN 20 MG TAB PO SCH (21:24)
--- NOTE | 2020-09-30 22:33 | PN ---
Date of Progress Note: 09/30/2020 Chief Complaint: Acute kidney injury. Patient needs dialysis. Dialysis was started for acute on ch ronic kidney injury. Review of Systems: Denies fever, chills. Physical Examination: General: No in acute distress. Eyes: Anicteric sclerae. EOMI. Ears, Nose, Mouth, and Throat: Oral mucosa moist. No pallor. Neck: Supple. No bruits. Lungs: Clear to auscultation bilaterally. Heart: S1, S2. Abdomen: Soft, benign, obese. Extremities: Edema present in both legs. Impression And Plan: Acute on chronic kidney injury. The patient is advancing to end-stage renal di sease. He presented to the hospital, who started dialysis. The patient has . Hypertensio n-related nephrosclerosis. Patient has nephrotic-range proteinuria. Ultrasound showed advanced environmental services aide robert kidney disease findings with smaller size kidneys. Serum intact PTH significantly elevated, whic h supports diagnosis of advanced chronic kidney and at this point patient remains dialysis dependent. We will continue dialysis on Friday, Friday, Friday. Today dialysis was scheduled for metabolic clearance and to obtain ultrafiltration. Continue renal diet and low-sodium diet. Monitor blood pressure. Adjust medication accordingly. EB/MODL Voice ID: [id number] Report ID: [id number]
[2020-10-01] MEDS: carvediloL 12.5 MG TAB PO SCH ×2 (05:23→16:47)
[2020-10-01 06:29] LABS: Albumin 2.9 g/dL (3.4-5.0); Bilirubin Total 0.3 mg/dL (0.2-1.0); Magnesium 1.8 mg/dL (1.8-2.4); Phosphorus 4.6 mg/dL (2.5-4.9); Potassium 3.4 mmol/L (3.5-5.1); Protein, Total 7.1 g/dL (6.4-8.2)
--- NOTE | 2020-10-01 08:24 | P.PN ---
Subjective Date of Service: 10/01/20 Primary Care Provider: Dr. Valle Chief Complaint: Acute renal failure Subjective: No new changes (doing well, tolerating HD, no new complaints) Review of Systems 10-point ROS is otherwise unremarkable Physical Examination - Vital Signs Temperature: 98.1 F Blood Pressure: 145/75 Pulse: 75 Respirations: 16 Pulse Ox (%): 98 Assessment & Plan Physician Review Additional Text: Physical Exam General: NAD, AAOx3, morbidly obese HEENT: Normal conjunctiva, sclera anicteric Respiratory: Clear to auscultation bilaterally, nonlabored on RA Cardiovascular: Regular rate/rhythm, Normal S1 S2, trace edema bilaterally Gastrointestinal: Soft, nontender, nondistended Neuro: moves all extremities Problem list Acute worsening of CKD 4 to ESRD, requiring HD initiation Normocytic anemia, anemia of chronic disease, iron deficiency Hypocalcemia, vit d deficiency Hyperphosphatemia Hypertension -decreased coreg to 6.25 from 12.5 BID on 09/30 - pt was noted to have bradycardic episodes - while asleep and one brief asymptomatic episode during dialysis -Nephrology consulted, continue Lasix /dialysis -s/p dialysis cath 09/28, initial HD done 09/28, tolerated well -electrolyte management via dialysis/nephrology -hep panel sent / results pending -iv iron started 09/28 -unclear etiology of MELINA or CKD, pt has significant family history, denies diabetes or NSAID usage, U/S with chronic disease. workup per nephrology -echo 09/27 normal -symptomatically much improved Dispo: drug abuse social worker consulted to assist with outpatient dialysis scheduling, hep panel pending anticipate dc home tomorrow, awaiting hep panel results Time Spent Managing Pts Care (In Minutes): 35
[2020-10-01] MEDS: FUROSEMIDE 20 MG TABLET PO SCH ×2 (09:41→16:47)
[2020-10-01] MEDS: SEVELAMER CARBONATE 800 MG TABLET PO SCH ×3 (09:41→16:46)
[2020-10-01] MEDS: VITAMIN D 5,000 UNIT CAP PO SCH (09:42)
[2020-10-01] MEDS: MULTIVITAMINS,THERAPEUT 1 TAB PO SCH (09:42)
[2020-10-01] MEDS: CALCITROL 0.25 MCG CAP PO SCH (09:42)
--- NOTE | 2020-10-01 19:31 | PN ---
Date of Progress Note: 10/01/2020 Chief Complaint: Acute kidney injury on advanced chronic kidney disease. The patient is dialysis de pendent. He will continue dialysis for end-stage renal disease. There is no evidence of renal funct ion recovery. Review of Systems: Denies fever, chills. Physical Examination: Lungs: Clear to auscultation bilaterally. Heart: S1, S2. Abdomen: Soft, benign. Extremities: Edema present in both legs. Impression/plan: 1.[id number] kidney injury. The patient is advancing to end-stage renal disease. Continue di alysis. During this admission, the patient was dialyzed via the catheter, which was placed for dialy sis access. Next dialysis is tomorrow. The patient has history of hypertensive kidney disease and n ephrotic range proteinuria. Ultrasound showed advanced chronic kidney disease. Kidney size is small . The patient likely has benign nephrosclerosis. The patient will need to have workup to rule out _ was older. The patient will continue vitamin D replacement and adjust medication according ly. 2.Monitor phosphorus level and adjust binders. EB/MODL Voice ID: [id number] Report ID: [id number]
[2020-10-01 20:14] LABS: HBsAG Nonreactive (Nonreactive)
[2020-10-01] MEDS: ATORVASTATIN 20 MG TAB PO SCH (21:03)
[2020-10-02] MEDS: carvediloL 12.5 MG TAB PO SCH (05:16)
[2020-10-02 06:03] LABS: Hematocrit 27.7 % (39.6-49.0); MPV 8.4 fL (7.6-11.3); RBC Red Blood Cell Count 2.94 M/uL (4.33-5.43)
[2020-10-02 06:20] LABS: Albumin 2.8 g/dL (3.4-5.0); Magnesium 1.8 mg/dL (1.8-2.4); Phosphorus 4.7 mg/dL (2.5-4.9); Potassium 3.5 mmol/L (3.5-5.1)
[2020-10-02] MEDS: CALCITROL 0.25 MCG CAP PO SCH (09:07)
[2020-10-02] MEDS: VITAMIN D 5,000 UNIT CAP PO SCH (09:07)
[2020-10-02] MEDS: SEVELAMER CARBONATE 800 MG TABLET PO SCH ×2 (09:07→12:11)
[2020-10-02] MEDS: FUROSEMIDE 20 MG TABLET PO SCH (09:08)
[2020-10-02] MEDS: MULTIVITAMINS,THERAPEUT 1 TAB PO SCH (09:08)
[2020-10-02 12:05] VITALS: BP 127/70; TEMP 99.2
[2020-10-02 12:46] VITALS: O2SAT 94
[2020-10-02] MEDS: SOD FERRIC GLUC COMPLX/SUCROSE 125 MG in NA CHLORIDE 0.9% 100 ML IV SCH (14:15)
--- NOTE | 2020-10-02 17:46 | P.DS ---
Admission Date: 09/26/20 Discharge Date: 10/02/20 Primary Care Provider: Dr. Valle Disposition: ROUTINE DISCHARGE Discharge Condition: GOOD Reason for Admission: Acute renal failure Consultations: Nephrology - Dr. Le, Dr. Johnson General Surgery - Dr. Guerra Procedures: CXR (09/26): FINDINGS: Upper lobe vessels are prominent indicative of pulmonary venous hypertension Lungs appear clear of straight. Heart is mildly to moderately enlarged Venous U/S (09/26): The common femoral, superficial femoral, popliteal and posterior tibial veins bilaterally are compressible and demonstrate augmentation. Doppler demonstrates good flow. IMPRESSION: No evidence of deep venous thrombosis involving either lower extremity. Renal U/S (09/26): Right kidney is poorly visualized. It appears to measure 9.5 centimeters with an increased echotexture. Hydronephrosis is not seen. Evaluation of the left kidney is nondiagnostic Bladder is poorly visualized IMPRESSION: Limited exam Increased right renal echotexture consistent with chronic disease. TTE (09/26): Normal 2D echocardiogram with Doppler. No wall motion abnormality. No effusion CXR(09/28): Right IJ approach hemodialysis catheter tip overlies the right innominate vein. Cardiomegaly. No acute cardiopulmonary disease. No pneumothorax. R IJ Dialysis catheter placement by Dr. Guerra (09/28) Problem list Acute worsening of CKD 4 to ESRD, requiring HD initiation Normocytic anemia, anemia of chronic disease, iron deficiency Hypocalcemia, vit d deficiency Hyperphosphatemia Hypertension Brief History of Present Illness: 45-year-old male with history of CKD 4, hypertension presents emergency department after having outpatient labs with elevated creatinine. Patient was evaluated in the emergency department, labs significant for white blood cell count 12.1 hemoglobin 9.4 hematocrit 28.3 BUN 126 creatinine 9.7 GFR 6 calcium 5.3, magnesium 1.6. Chest x-ray unremarkable BNP 2826. Case was discussed with nephrology who has placed additional orders for admission, patient will be diuresed overnight and likely will require dialysis. Hospital Course: Nephrology was consulted and discussed options with the patient. Hemodialysis catheter was placed by Dr. Guerra, patient underwent consecutive days of dialysis with improvement of his symptoms. He was set up with a chair time and discharged home. He was noted to be iron deficient and did receive few doses of IV iron. ESRD presumed to be secondary to hypertensive nephrosclerosis versus obesity related secondary FSGS. He does have several family members with CKD. His father required dialysis. Vital Signs/Physical Exam: Physical Exam General: NAD, AAOx3, morbidly obese HEENT: Normal conjunctiva, sclera anicteric Respiratory: Clear to auscultation bilaterally, nonlabored on RA Cardiovascular: Regular rate/rhythm, Normal S1 S2, trace edema bilaterally Gastrointestinal: Soft, nontender, nondistended Neuro: str 5/5 bilaterally Temp Pulse Resp BP Pulse Ox 99.2 F 81 20 127/70 94 10/02/20 12:00 10/02/20 12:00 10/02/20 12:00 10/02/20 12:00 10/02/20 12:00 Laboratory Data at Discharge: WBC 10.90 K/uL (4.3-10.9) 10/02/20 05:45 Hgb 9.7 g/dL (13.6-17.9) L 10/02/20 05:45 Hct 27.7 % (39.6-49.0) L 10/02/20 05:45 Plt Count 258 K/uL (152-406) 10/02/20 05:45 PT 13.8 SECONDS (9.5-12.5) H 09/26/20 16:27 INR 1.20 09/26/20 16:27 Sodium 138 mmol/L (136-145) 10/02/20 05:45 Potassium 3.5 mmol/L (3.5-5.1) 10/02/20 05:45 BUN 52 mg/dL (7-18) H 10/02/20 05:45 Creatinine 7.10 mg/dL (0.55-1.3) H* D 10/02/20 05:45 Glucose 87 mg/dL (74-106) 10/02/20 05:45 Phosphorus 4.7 mg/dL (2.5-4.9) 10/02/20 05:45 Magnesium 1.8 mg/dL (1.8-2.4) 10/02/20 05:45 Total Bilirubin 0.3 mg/dL (0.2-1.0) 10/01/20 05:11 AST 13 U/L (15-37) L 10/01/20 05:11 ALT 16 U/L (12-78) 10/01/20 05:11 Alkaline Phosphatase 120 U/L (45-117) H 10/01/20 05:11 Home Medications: Allopurinol 300 mg PO DAILY 09/26/20 Amlodipine [Norvasc*] 5 mg PO DAILY 09/26/20 Atorvastatin Calcium 20 mg PO BEDTIME 09/26/20 Cholecalciferol (Vitamin D3) [Vitamin D 5,000 IU Cap*] 5,000 unit PO DAILY #30 cap 10/02/20 Furosemide [Lasix*] 20 mg PO BIDL #60 tab 10/02/20 carvediloL [Coreg] 6.25 mg PO BID #60 tab 10/02/20 New Medications: carvediloL [Coreg] 6.25 mg PO BID #60 tab Furosemide [Lasix*] 20 mg PO BIDL #60 tab Cholecalciferol (Vitamin D3) [Vitamin D 5,000 IU Cap*] 5,000 unit PO DAILY #30 cap Physician Discharge Instructions: PROBLEM: End-stage renal disease, Hemodialysis GOAL: Clear understanding of disease process E-scripts sent to [facility] in [place]. INSTRUCTIONS: - You were found to be in worsening renal failure, now requiring dialysis. - Follow up with your Primary Care Provider in 3-5 days. - Follow up with nephrology as scheduled. Continue dialysis as scheduled. Your chair time is at [facility] in [place] on Friday, Friday, and Friday at 2:00 p.m. starting this Friday, October 04, 2020. Diet: Renal Activity: As tolerated IMMUNIZATION Influenza Vaccine Indicated: Influenza Vaccine Given: Date Given: Pneumonia Vaccine Indicated: No Pneumonia Vaccine Given: Date Given: Diet: Renal Activity: Ad hair Followup: Chilango Valle MD [ACTIVE - CAN ADMIT] - Time spent managing pt's care (in minutes): 40
--- NOTE | 2020-10-02 22:53 | PN ---
Date of Progress Note: 10/02/2020 Chief Complaint: Acute kidney injury on advanced chronic kidney disease. History Of Present Illness: The patient currently is dialysis dependent. He received dialysis today . The patient will continue dialysis for end-stage renal disease. There is no evidence of renal fun ction recovery. Review of Systems: Denies PND or orthopnea. Physical Examination: Lungs: Clear to auscultation bilaterally. Heart: S1, S2. Abdomen: Soft, benign. Extremities: Edema in both legs overall improved. Impression And Plan: 1.Acute on chronic kidney injury. The patient is advancing to end-stage renal disease. Continue di alysis 3 times per week. The patient was dialyzed via tunneled dialysis catheter. Catheter is funct ioning well. 2.History of hypertensive kidney disease and nephrotic range proteinuria. The patient will continue low sodium diet and nephrotoxic medication. The patient has history of benign nephrosclerosis. Ult rasound showed small size kidney. 3.Vitamin E deficiency. Continue replacement. 4.Hypertension. Continue blood pressure medication. 5.Hypophosphatemia. Adjust binders. Monitor intact PTH. EB/MODL Voice ID: [id number] Report ID: [id number]
== END 2020-10-02 17:27 | disposition home or self-care (01) | DRG 673 ==
LOC: ER 15:05 → 2ND 20:19
PROVIDERS: ADMIT Hospitalist; ATTEND Hospitalist
PROC: 05H333Z Insertion of Infusion Device into Right Innominate Vein, Percutaneous Approach (ICD-10-PCS; 2020-09-28)
PROC: 5A1D70Z Performance of Urinary Filtration, Intermittent, Less than 6 Hours Per Day (ICD-10-PCS; 2020-09-28)
PROC: 0JH63XZ Insertion of Tunneled Vascular Access Device into Chest Subcutaneous Tissue and Fascia, Percutaneous Approach (ICD-10-PCS; principal; 2020-09-28 09:00)
PROC: 5A1D70Z Performance of Urinary Filtration, Intermittent, Less than 6 Hours Per Day (ICD-10-PCS; 2020-09-29)
PROC: 5A1D70Z Performance of Urinary Filtration, Intermittent, Less than 6 Hours Per Day (ICD-10-PCS; 2020-09-30)
PROC: 5A1D70Z Performance of Urinary Filtration, Intermittent, Less than 6 Hours Per Day (ICD-10-PCS; 2020-10-02)
DX: I12.0 Hypertensive chronic kidney disease with stage 5 chronic kidney disease or end stage renal disease (principal); N18.6 End stage renal disease; N17.9 Acute kidney failure, unspecified; Z68.43 Body mass index [BMI] 50.0-59.9, adult; E87.2 Acidosis; E66.9 Obesity, unspecified; D50.9 Iron deficiency anemia, unspecified; D63.8 Anemia in other chronic diseases classified elsewhere; E83.51 Hypocalcemia; E55.9 Vitamin D deficiency, unspecified; E83.39 Other disorders of phosphorus metabolism; E83.42 Hypomagnesemia; Z20.822 Contact with and (suspected) exposure to COVID-19
CPT/HCPCS: 36415; 71045; 76000; 76770; 80048; 80053; 80069; 80076; 81001; 82306; 82570; 82728; 83540; 83735; 83880; 83935; 83970; 84100; 84132; 84156; 84300; 84443; 84466; 84484; 85025; 85027; 85610; 86317; 86704; 86706; 86803; 87086; 87088; 87340; 90935; 93005; 93307; 93970; 94010; 96365; 96375; 99285; C1752; J0610; J0690; J1644; J1940; J2150; J2704; J2916; J3010; J3475; J7040; Q5105; Q5106; U0003

== ENCOUNTER 2021-12-25 05:18 | Inpatient (IN) | payer BC, OTHER ==
--- OUTSIDE RECORDS SUMMARY | 2021-12-25 05:21 | XMS REPORT | Continuity of Care Document ---
:1975 Author Organization [facility] t Address [address] [place] [address] Care Team Providers Name Role Phone Roberto Carlos Kylee Attending Clinician Unavailable Problems This patient has no known problems. Allergies, Adverse Reactions, Alerts This patient has no known allergies or adverse reactions. Medications This patient has no known medications. Procedures This patient has no known procedures. Encounters Start End Encounter Admission Attending Care Care Encounter Source Date/Time Date/Time Type Type Clinicians Facility Department ID 2021-11-16 Outpatient ROBERT Azevedo STLML[facility] [id number] Common 10:39:03 Kylee [facility] 2021-06-19 Outpatient ROBERT Azevedo [facility] [id number] Common 09:18:05 Kylee [facility] 2021-11-20 2021-11-20 ambulatory [facility] [id number] Common 00:00:00 00:00:00 [facility] 2021-08-23 2021-08-23 ambulatory [facility]C [facility] [id number] Common 00:00:00 00:00:00 [facility] 2021-06-19 2021-06-19 ambulatory [facility] [id number] Common 00:00:00 00:00:00 [facility] Results This patient has no known results.
[2021-12-25] MEDS ORDERED: FUROSEMIDE 40 MG/4 ML VIAL ONE (08:02)
--- NOTE | 2021-12-25 08:12 | ER ---
Nurse's Notes [facility] Name: Homer Romo Age: 46 yrs Sex: Male : 1975 Arrival Date: 12/25/2021 Time: 05:27 Bed 20 Private MD: Diagnosis: Dyspnea-Anasarca;Edema, unspecified;End stage renal disease-ESRD ON HDM,W,F;Non ST elevation ID Presentation: 12/25 06:02 Chief complaint: Patient states: he has been out of his diuretic for a week and is bb feeling SOB, he is retaining fluid and is swelling pt had dialysis yesterday. Coronavirus screen: At this time, the client does not indicate any symptoms associated with coronavirus-19. Ebola Screen: No symptoms or risks identified at this time. Initial Sepsis Screen: Does the patient meet any 2 criteria? RR > 20 per min. HR > 90 bpm. Does the patient have a suspected source of infection? No. Patient's initial sepsis screen is negative. Risk Assessment: Do you want to hurt yourself or someone else? Patient reports no desire to harm self or others. Onset of symptoms was December 24, 2021. 06:02 Method Of Arrival: Ambulatory bb 06:02 Acuity: EZRA 3 bb Triage Assessment: 08:40 General: Appears uncomfortable, ill. Respiratory: the patient has moderate shortness of bb breath. 16:17 Respiratory: Onset: The symptoms/episode began/occurred at an unknown time. kr3 Historical: - Allergies: 06:04 No Known Allergies; bb - Home Meds: 06:04 Aspirin Oral [Active]; atorvastatin oral [Active]; sertraline oral [Active]; Lisinopril bb Oral [Active]; Hydralazine Oral [Active]; Furosemide Oral [Active]; - PMHx: 06:04 Anxiety; Hypertensive disorder; Sleep Apnea; Dialysis; bb - PSHx: 06:04 Fistula; Knee surgery; bb - Immunization history:: Moderna x 3. - Social history:: Smoking status: Patient denies any tobacco usage or history of. - Family history:: not pertinent. - Hospitalizations: : No recent hospitalization is reported. Screenin:30 Abuse screen: Denies threats or abuse. Nutritional screening: No deficits noted. jj7 Tuberculosis screening: No symptoms or risk factors identified. Fall Risk None identified. Assessment: 06:30 General: Appears in no apparent distress. uncomfortable, obese, Behavior is calm, jj7 cooperative, appropriate for age, drowsy. Pain: Denies pain. Cardiovascular: Reports EDEMA. Respiratory: Reports shortness of breath since SINCE RUNNING OUT OF HIS DIUETIC LAST WEEK. 07:03 Reassessment: PT REPORT GIVEN TO NIMESH MARMOLEJO RN. jj7 07:15 General: Appears ill, obese, Behavior is calm, cooperative, appropriate for age. bb Cardiovascular: Reports shortness of breath, Rhythm is regular. Respiratory: Airway is patent Trachea midline Respiratory effort is even, labored, Respiratory pattern is symmetrical, tachypnea audible snoring when asleep Breath sounds with crackles bilaterally. Musculoskeletal: Reports swelling of body. 08:00 Reassessment: No changes from previously documented assessment. Patient and/or family bb updated on plan of care and expected duration. Pain level reassessed. Patient is alert, oriented x 3, equal unlabored respirations, skin warm/dry/pink. 08:44 Reassessment: No changes from previously documented assessment. Patient and/or family bb updated on plan of care and expected duration. Pain level reassessed. 09:45 Reassessment: No changes from previously documented assessment. Patient and/or family kr3 updated on plan of care and expected duration. Pain level reassessed. Patient is alert, oriented x 3, equal unlabored respirations, skin warm/dry/pink. 10:00 Reassessment: see [facility] for documentation . kr3 Vital Signs: 06:02 BP 144 / 68; Pulse 112; Resp 24 S; Temp 98(O); Pulse Ox 98% on R/A; Weight 130.18 kg bb (R); Height 5 ft. 6 in. (167.64 cm) (R); Pain 0/10; 08:38 BP 136 / 74; Pulse 91; Resp 22; Pulse Ox 100% ; bb 09:40 BP 136 / 88; Pulse 83; Resp 22; Pulse Ox 97% on R/A; kr3 06:02 Body Mass Index 46.32 (130.18 kg, 167.64 cm) bb ED Course: 05:27 Patient arrived in ED. ja2 05:28 Ralph Ayala MD is Attending Physician. rn 06:04 Triage completed. bb 06:04 Arm band placed on Patient placed in an exam room, on a stretcher, on pulse oximetry. bb 06:30 Patient has correct armband on for positive identification. Placed in gown. Bed in low jj7 position. Call light in reach. Side rails up X2. 06:30 Missed attempt(s): 18 gauge in right upper arm. jj7 07:14 Attending Physician role handed off by Ralph Ayala MD [facility] 07:14 Hay Altamirano MD is Attending Physician. [facility] 07:14 Jessy Marques, RN is Primary Nurse. bb 07:29 XRAY CXR (1 view) In Process Unspecified. EDMS 07:30 Inserted saline lock: 18 gauge EJ, using aseptic technique. ,using aseptic technique. ss Insertion by Hay Altamirano MD Blood collected. 07:50 James Reynoso MD is Hospitalizing Provider. daniela 08:31 Soft Tissue Neck Wo Contr In Process Unspecified. EDMS 15:13 SARS-COV-2 Antigen Rapid Sent. kr3 16:00 Report given to scott mace on . kr3 16:17 No provider procedures requiring assistance completed. Patient admitted, IV remains in kr3 place. Administered Medications: 08:00 Drug: Lasix (furosemide) 40 mg Route: IVP; Site: Other; bb 16:22 Follow up: Response: No adverse reaction kr3 Medication: 06:30 VIS not applicable for this client. jj7 Outcome: 08:12 Decision to Hospitalize by Provider. [facility] 16:17 Admitted to Med/surg accompanied by tech, via wheelchair. kr3 16:17 Condition: stable 16:17 Instructed on the need for admit. 16:18 Patient left the ED. kr3 Signatures: Dispatcher [employer] EDNJ Hay Altamirano MD MD cha Ballard, Brenda, RN RN Ralph Newman MD MD rn Smirch, Shelby, RN RN ss Alexander, Jessica ja2 Reid, Kelley, RN RN kr3 Manas Perry RN RN jj7
--- NOTE | 2021-12-25 08:12 | EDPHYS ---
Physician Documentation [facility] Name: Homer Romo Age: 46 yrs Sex: Male : 1975 Arrival Date: 12/25/2021 Time: 05:27 Bed 20 Private MD: TONIA Physician Hay Altamirano HPI: 12/25 05:59 This 46 yrs old Male presents to ER via Unassigned with complaints of rn Breathing Difficulty, Hand Swelling. 05:59 The patient has shortness of breath at rest, with light activity. Onset: The rn symptoms/episode began/occurred yesterday. Duration: The symptoms are continuous. The patient's shortness of breath is aggravated by exertion, light activity, talking, walking, is alleviated by nothing. Associated signs and symptoms: Pertinent positives: non-productive cough, Pertinent negatives: chest pain, fever, hemoptysis. Severity of symptoms: At their worst the symptoms were moderate in the emergency department the symptoms are unchanged. The patient has experienced similar episodes in the past. The patient has been recently seen by a physician:. Dialysis MWF, last dialysis yesterday, reports told to come to ER yesterday but didn't listen. Here because could not sleep or breathe. No fever. Feels "head cold". Out of diuretic for 1 week. . Historical: - Allergies: 06:04 No Known Allergies; bb - Home Meds: 06:04 Aspirin Oral [Active]; atorvastatin oral [Active]; sertraline oral [Active]; Lisinopril bb Oral [Active]; Hydralazine Oral [Active]; Furosemide Oral [Active]; - PMHx: 06:04 Anxiety; Hypertensive disorder; Sleep Apnea; Dialysis; bb - PSHx: 06:04 Fistula; Knee surgery; bb - Immunization history:: Moderna x 3. - Social history:: Smoking status: Patient denies any tobacco usage or history of. - Family history:: not pertinent. - Hospitalizations: : No recent hospitalization is reported. ROS: 05:59 Constitutional: Negative for fever, chills, and weight loss, Eyes: Negative for injury, rn pain, redness, and discharge, Neck: Negative for injury, pain, and swelling, Cardiovascular: Negative for chest pain, palpitations, and edema, Respiratory: Negative for pleuritic chest pain Abdomen/GI: Negative for abdominal pain, nausea, vomiting, diarrhea, and constipation, Back: Negative for injury and pain, MS/Extremity: Negative for injury and deformity, Skin: Negative for injury, rash, and discoloration, Neuro: Negative for headache, weakness, numbness, tingling, and seizure. Exam: 05:59 Constitutional: This is a well developed, well nourished patient who is awake, alert, rn moderate tachypnea Head/Face: Normocephalic, atraumatic. Eyes: Periorbital areas with no swelling, redness, or edema. Cardiovascular: tachycardic, reg rhythm Respiratory: + coarse bilateral breath sounds, + tachypnea, no retractions Abdomen/GI: Soft, non-tender Back: No spinal tenderness. No costovertebral tenderness. Full range of motion. Skin: Warm, dry with normal turgor. Normal color with no rashes, no lesions, and no evidence of cellulitis. MS/ Extremity: Pulses equal, no cyanosis. Neuro: Awake and alert, GCS 15 08:32 ECG was reviewed by the Attending Physician. [facility] Vital Signs: 06:02 BP 144 / 68; Pulse 112; Resp 24 S; Temp 98(O); Pulse Ox 98% on R/A; Weight 130.18 kg bb (R); Height 5 ft. 6 in. (167.64 cm) (R); Pain 0/10; 08:38 BP 136 / 74; Pulse 91; Resp 22; Pulse Ox 100% ; bb 09:40 BP 136 / 88; Pulse 83; Resp 22; Pulse Ox 97% on R/A; kr3 06:02 Body Mass Index 46.32 (130.18 kg, 167.64 cm) Procedures: 09:46 Peripheral line: by aseptic technique a peripheral line was placed in the right [facility] external jugular vein. MDM: 05:28 Patient medically screened. rn 08:27 Differential diagnosis: CHF exacerbation, Myocardial Infarction pneumonia, Pneumothorax daniela pulmonary edema, reactive airway disease, Unstable Angina. Antibiotic administration: Not indicated, the patient does not have an appreciated infiltrate. The patient's Wells Deep Vein Thrombosis Score was calculated as follows: Heart Rate >100 BPM (1.5 Pts). The patient's pulmonary embolism risk score was calculated as follows: the patients heart rate is greater than 100 beats per minute (1.5 Pts) Total Score: 0-2 points. This patient was found to be at low risk for a pulmonary embolism by using the Well's assessment criteria. Immunization status:. Data reviewed: vital signs, nurses notes, lab test result(s), EKG, radiologic studies, plain films. Data interpreted: equipment monitor phototypesetting: rate is 112 beats/min, rhythm is regular, Pulse oximetry: on room air is 98 %. Test interpretation: by ED physician or midlevel provider: ECG, plain radiologic studies. Counseling: I had a detailed discussion with the patient and/or guardian regarding: the historical points, exam findings, and any diagnostic results supporting the discharge/admit diagnosis, lab results, radiology results, the need for further work-up and treatment in the hospital. 12/25 05:58 Order name: BMP; Complete Time: 09: rn 12/25 05:58 Order name: Blood Culture Adult (2) rn 12/25 05:58 Order name: CBC with Diff rn 12/25 05:58 Order name: Hepatic Function; Complete Time: 09:25 12/25 05:58 Order name: Magnesium; Complete Time: 09:25 rn 12/25 05:58 Order name: NT PRO-BNP; Complete Time: 09:25 rn 12/25 05:58 Order name: PT-INR rn 12/25 05:58 Order name: Ptt, Activated rn 12/25 05:58 Order name: Troponin HS; Complete Time: 09:25 rn 12/25 05:59 Order name: Flu; Complete Time: 12:57 12/25 05:59 Order name: SARS-COV-2 RT PCR (Document "Date of Onset" if Symptomatic); Complete Time: rn 12:57 12/25 07:43 Order name: Strep; Complete Time: 12:57 daniela 12/25 10:08 Order name: SARS-COV-2 Antigen Rapid bd 12/25 13:41 Order name: Phosphorus EDMS 12/25 05:58 Order name: XRAY CXR (1 view) rn 12/25 05:58 Order name: EKG; Complete Time: 05:59 rn 12/25 05:58 Order name: Cardiac monitoring; Complete Time: 07:15 rn 12/25 05:58 Order name: EKG - Nurse/Tech; Complete Time: 07:15 rn 12/25 05:58 Order name: IV Saline Lock; Complete Time: 07:44 rn 12/25 05:58 Order name: Labs collected and sent; Complete Time: 07:44 rn 12/25 05:58 Order name: O2 Per Protocol; Complete Time: 06:06 rn 12/25 05:58 Order name: O2 Sat Monitoring; Complete Time: 06:06 rn 12/25 08:21 Order name: Soft Tissue Neck Wo Contr; Complete Time: 09:25 EDMS 12/25 08:36 Order name: CONS Physician Consult EDMS 12/25 13:41 Order name: Magnesium EDMS 12/25 14:50 Order name: CT EDMS EC:32 Rate is 88 beats/min. Rhythm is regular. QRS [place] is Normal. [place] interval is normal. QRS daniela interval is normal. QT interval is normal. No Q waves. T waves are Normal. No ST changes noted. Clinical impression: NSR w/ Non-specific ST/T Changes and No evidence of ischemia. Interpreted by me. Reviewed by me. Administered Medications: 08:00 Drug: Lasix (furosemide) 40 mg Route: IVP; Site: Other; bb 16:22 Follow up: Response: No adverse reaction kr3 Disposition Summary: 12/25/21 08:12 Hospitalization Ordered Hospitalization Status: Observation daniela Provider: James Reynoso cha Condition: Fair daniela Problem: new daniela Symptoms: have improved daniela Bed/Room Type: Standard daniela Location: Telemetry/MedSurg (observation)(12/25/21 14:11) ja1 Room Assignment: 410(12/25/21 14:11) ja1 Diagnosis - Dyspnea - Anasarca daniela - Edema, unspecified daniela - End stage renal disease - ESRD ON HDM,W,F daniela - Non ST elevation [place] daniela Forms: - Medication Reconciliation Form daniela - SBAR form daniela Signatures: Dispatcher [employer] EDMS Hay Altamirano MD MD cha Ballard, Brenda RN Ralph Taylor MD MD rn Aguilar, Jose, RN RN ja1 Cally Rolle RN kr3 Corrections: (The following items were deleted from the chart) 06:03 05:59 Constitutional: This is a well developed, well nourished patient who is awake, rn alert, moderate tachypnea Head/Face: Normocephalic, atraumatic. Eyes: Periorbital areas with no swelling, redness, or edema. Cardiovascular: Regular rate and rhythm with a normal S1 and S2. No gallops, murmurs, or rubs. Normal PMI, no JVD. No pulse deficits. Respiratory: + coarse bilateral breath sounds, + tachypnea, no retractions Abdomen/GI: Soft, non-tender Back: No spinal tenderness. No costovertebral tenderness. Full range of motion. Skin: Warm, dry with normal turgor. Normal color with no rashes, no lesions, and no evidence of cellulitis. MS/ Extremity: Pulses equal, no cyanosis. Neuro: Awake and alert, GCS 15 rn 08:21 07:49 Soft Tissue Neck W/Contr+CT.RAD.BRZ ordered. EDMS EDMS 1053 08:12 Telemetry/MedSurg (observation) daniela lafleur 10:53 08:12 daniela 1 14:11 10:53 [facility] ER HOLD [place] [address] 14:11 10:53 ERHOLD- [place] [address]
[2021-12-25 08:23] LABS: Albumin 3.3 g/dL (3.4-5.0); Bilirubin Direct 0.2 mg/dL (0-0.2); Bilirubin Total 0.4 mg/dL (0.2-1.0); Magnesium 2.2 mg/dL (1.8-2.4); Potassium 4.6 mmol/L (3.5-5.1); Protein, Total 7.1 g/dL (6.4-8.2)
[2021-12-25 08:26] LABS: Troponin High Sensitivity 385.4 pg/mL (<58.9)
[2021-12-25] MEDS ORDERED: HYDROCODONE/APAP 5/325 MG TAB PO PRN (08:35)
[2021-12-25] MEDS ORDERED: ONDANSETRON 4 MG/2 ML VIAL IV PRN (08:35)
[2021-12-25] MEDS ORDERED: ACETAMINOPHEN 325 MG TABLET PO PRN (08:39)
[2021-12-25] MEDS ORDERED: IPRATROPIUM BROM 0.5MG/2.5ML NEB PRN (08:42)
[2021-12-25] MEDS ORDERED: ALBUTEROL 2.5 MG/3 ML NEB SOL NEB PRN (08:42)
[2021-12-25] MEDS ORDERED: LABETALOL 20 MG/4ML SYRINGE IV PRN (08:44)
--- NOTE | 2021-12-25 08:46 | P.HP ---
Certification for Inpatient Patient admitted to: Observation With expected LOS: <2 Midnights Patient will require the following post-hospital care: None Practitioner: I am a practitioner with admitting privileges, knowledge of patient current condition, hospital course, and medical plan of care. Services: Services provided to patient in accordance with Admission requirements found in Title 42 Section 412.3 of the Code of Federal Regulations Patient History Date of Service: 12/25/21 Reason for admission: Shortness of breath and generalized swelling. History of Present Illness: Patient is a 46-year-old male with a past medical history significant for ESRD, obesity, hyperlipidemia, sleep apnea, anxiety disorder, hypertension who presents with complaint of shortness of breath onset 4 days ago. Patient reported that he ran out of his diuretic 1 week ago. Patient reported associated signs and symptoms of generalized swelling. Patient denies any other signs and symptoms. Shortness of breath is aggravated with exertion and relieved by nothing. Patient decided to present to the hospital due to worsening symptoms. Of note, patient noted with a hoarse voice. Allergies No Known Allergies Allergy (Verified 09/26/20 21:43) Home Medications: Allopurinol 300 mg PO DAILY 09/26/20 Amlodipine [Norvasc*] 5 mg PO DAILY 09/26/20 Atorvastatin Calcium 20 mg PO BEDTIME 09/26/20 Cholecalciferol (Vitamin D3) [Vitamin D 5,000 IU Cap*] 5,000 unit PO DAILY #30 cap 10/02/20 Furosemide [Lasix*] 20 mg PO BIDL #60 tab 10/02/20 carvediloL [Coreg] 6.25 mg PO BID #60 tab 10/02/20 - Past Medical/Surgical History Diabetic: No -: Hypertension -: ESRD -: Knee surgery Psychosocial/ Personal History: Employed at the hospital, lives with family - Family History Mother -: Cancer Father -: Lung disease, Cancer, Kidney disease Brother -: Cancer Sister -: Cancer - Social History Smoking Status: Never smoker Alcohol use: No CD- Drugs: No Caffeine use: No Place of Residence: Home Review of Systems General: Unremarkable Eyes: Unremarkable ENT: Other (Hoarse voice) Respiratory: Shortness of Breath, SOB with Excertion Cardiovascular: Unremarkable Gastrointestinal: Unremarkable Genitourinary: Unremarkable Musculoskeletal: Other (Generalized swelling.) Integumentary: Unremarkable Neurological: Unremarkable Lymphatics: Unremarkable Physical Examination - Physical Exam General: Alert, Oriented x3 HEENT: Atraumatic, Normocephalic, PERRLA Neck: Supple, 2+ carotid pulse no bruit, JVD not distended Respiratory: Clear to auscultation bilaterally, Diminished Cardiovascular: No edema, Edema Capillary refill: <2 Seconds Gastrointestinal: Normal bowel sounds, Soft and benign Musculoskeletal: No clubbing, No contractures, Swelling Integumentary: No rashes, No breakdown, No significant lesion Neurological: Normal gait, Normal speech, Normal tone, Normal affect Lymphatics: No axilla or inguinal lymphadenopathy - Studies Laboratory Data (last 24 hrs) 12/25/21 07:29: Sodium 136, Potassium 4.6, BUN 74 H, Creatinine 10.10 H*, Glucose 86, Magnesium 2.2, Total Bilirubin 0.4, AST 12 L, ALT 31, Alkaline Phosphatase 69 Assessment and Plan - Plan --Volume overload. Patient reported that he had dialysis yesterday. Nephrology consulted. Will await further recommendations. --ESRD. Further management per nephrology. --Elevated troponin. Likely secondary to ESRD. Will trend troponin levels. Telemetry to monitor for any significant arrhythmia. --Hyperlipidemia. Continue statin. --Sleep apnea. CPAP at bedtime. --Class III obesity. Likely secondary to excess calories intake. Patient counseled on weight reduction, diet and exercise therapy. --Hoarseness. Noted in patient's voice. CT indicates high density material seen along the left tongue base/tonsillar region. ENT MD consulted. Will await further recommendations. --Anxiety disorder. Continue home medication. --Hypertension. Poorly controlled. Continue home medications and labetalol as needed. --Anemia of chronic disease. H&H stable. We will continue to monitor hemoglobin and transfuse if less than 7.0. --Gout. Continue allopurinol. --DVT prophylaxis with heparin subQ Discharge Plan: Home Plan to discharge in: 48 Hours - Advance Directives Does patient have a Living Will: No Does patient have a Durable POA for Healthcare: No - Code Status/Comfort Care Code Status Assessed: Yes Code Status: Full Code Physician Review: Patient Assessed, Agree with Above Assessment and Plan Critical Care: No
[2021-12-25] MEDS: HEPARIN 5000 UNIT/ML 1 ML VIAL SQ SCH ×2 (09:00→21:26)
[2021-12-25] MEDS: ASPIRIN EC 81 MG TAB PO SCH (09:00)
[2021-12-25] MEDS ORDERED: FUROSEMIDE 20 MG TABLET PO SCH (09:00)
[2021-12-25] MEDS: carvediloL 6.25 MG TAB PO SCH ×2 (09:00→21:27)
[2021-12-25] MEDS: VITAMIN D 5,000 UNIT CAP PO SCH (09:00)
[2021-12-25] MEDS ORDERED: allopurinoL 300 MG TAB PO SCH (09:00)
[2021-12-25] MEDS: AMLODIPINE 5 MG TAB PO SCH (09:00)
--- NOTE | 2021-12-25 09:08 | RAD REPORT ---
EXAM DESCRIPTION: CT - Soft Tissue Neck Wo Contr CLINICAL HISTORY: Hoarseness, normal laryngeal exam Neck pain, congestion COMPARISON: No comparisons TECHNIQUE All CT scans are performed using dose optimization technique as appropriate and may includ e automated exposure control or mA/KV adjustment according to patient size. FINDINGS: Examination is significantly limited by lack of IV contrast. Mild high density material is seen in the region of the left tongue base/ left tonsil region (image 4 ). This is of unclear etiology. A few mildly prominent lymph nodes are seen along the jugular chain bilaterally. Symmetric salivary g lands are noted. Left-sided venous catheter is in place. A stent is present in superior vena cava. Mi ldly prominent lymph nodes are seen in the upper mediastinum. Mild pulmonary edema suspected in the u pper lungs. IMPRESSION: High density material seen along the left tongue base/ tonsillar region is of unclear et iology. Direct visualization may be of value. Mildly prominent lymph nodes are seen in the upper mediastinum. Mild pulmonary edema also suspected i n the upper lungs.
[2021-12-25] MEDS ORDERED: HEPARIN 5000 UNIT/ML 1 ML VIAL ONE (10:52)
[2021-12-25] MEDS ORDERED: carvediloL 6.25 MG TAB ONE (10:52)
[2021-12-25] MEDS ORDERED: ASPIRIN EC 81 MG TAB PO ONE (10:52)
[2021-12-25] MEDS ORDERED: FUROSEMIDE 20 MG TABLET ONE (10:52)
[2021-12-25] MEDS ORDERED: AMLODIPINE 5 MG TAB ONE (10:52)
[2021-12-25 13:15] LABS: Absolute Lymphocytes (CBC) 0.6 K/uL (0.7-4.9); Hematocrit 28.4 % (39.6-49.0); Lymphocytes % 8.1 % (15.3-44.8); MCV 104.7 fL (80-100); MPV 8.4 fL (7.6-11.3); RBC Red Blood Cell Count 2.72 M/uL (4.33-5.43)
[2021-12-25 13:17] LABS: Protime INR 1.19
[2021-12-25 13:41] LABS: Magnesium 2.1 mg/dL (1.8-2.4); Phosphorus 5.4 mg/dL (2.5-4.9)
--- NOTE | 2021-12-25 14:01 | EKG ---
Test Date: 2021-12-25 Test Time: 07:15:42 Lock Plater: RICH MEASUREMENT RESULTS: Intervals: Rate: 88 MO: 158 QRSD: 96 QT: 376 QTc: 454 [place]: P: 54 MO: 158 QRS: -41 T: 69 INTERPRETIVE STATEMENTS: Sinus rhythm with marked sinus arrhythmia Left axis deviation Abnormal ECG Compared to ECG 09/26/2020 16:20:44 Left-axis deviation now present Prolonged QT interval no longer present Electronically Signed On 12-25-21 14:00:15 CDT by Lavelle Buenrostro
--- NOTE | 2021-12-25 14:25 | P.CNS ---
Date of Consult: 12/25/21 Reason for Consult: fluid overload, respiratory failure Chief Complaint: Shortness of breath and generalized swelling. History of Present Illness: 46M w/ PMHx of ESRd on HD TTsat , FSGS,, Htn, & KADEN on CPAP, anemia of chronic disease and morbid obesity pt presented for worsening SOB Pt with significant ID Wt gain, presented yesterday to dialysis, he was 9kg above his dry wt , tolerated only ~3liters removal , pt stated he could not breath well and decided to come to ER , he stated that diuretics help with edema , but he run out recently , ROS General : denies fever, chills, WT change weakness, insomnia HEENT: Denies dry, vision changes and headache Resp: have SOB, cough Cardiovascular: have edema, denied chest pain, palpitation , GI: denies abdominal pain, diarrhea or constipation : denies dysuria, urgency, foamy urine or blood tinged urine Musculoskeletal: denies muscle aches, joint pain Endo: denies polyuria and and polydipsia Extre: have edema, denies pain numbness Physical exam General: AAOx3, NAD, obese HEENT PERRLA, moist mucose membrane neck: supple, no elevated JVD CHEST; diffuse rales HEART : RRR. Normal S1,2 no murmur or rub Abd: soft, Nt Ext: +2 edema Skin : No rash ESRD on HD TTSat Hd today and tomorrow Renal diet Monitor renal panel # Anemia of chronic disease Will start on epogen #resipratory failure Due to fluid overload HD today and tomorrow # Htn Cont Home med Low salt diet # Volume overload Cont HD Will start on Lasix #metabolic bone disease Resume binders Total time spent 65 minutes including documentation, reviewing labs , placing orders and discussing with medical team Allergies No Known Allergies Allergy (Verified 09/26/20 21:43) Home Medications: Allopurinol 300 mg PO DAILY 09/26/20 Amlodipine [Norvasc*] 5 mg PO DAILY 09/26/20 Atorvastatin Calcium 20 mg PO BEDTIME 09/26/20 Cholecalciferol (Vitamin D3) [Vitamin D 5,000 IU Cap*] 5,000 unit PO DAILY #30 cap 10/02/20 Furosemide [Lasix*] 20 mg PO BIDL #60 tab 10/02/20 carvediloL [Coreg] 6.25 mg PO BID #60 tab 10/02/20 - Past Medical/Surgical History Diabetic: No -: Hypertension -: ESRD -: Knee surgery Psychosocial/ Personal History: Employed at the hospital, lives with family - Family History Mother Medical History: Cancer Father Medical History: Lung disease, Cancer, Kidney disease Brother Medical History: Cancer Sister Medical History: Cancer - Social History Alcohol use: No CD- Drugs: No Caffeine use: No Place of Residence: Home Physical Examination Temp Pulse Resp BP Pulse Ox 83 152/66 H 12/25/21 09:00 12/25/21 09:00 Laboratory Data (last 24 hrs) 12/25/21 07:29: Sodium 136, Potassium 4.6, BUN 74 H, Creatinine 10.10 H*, Glucose 86, Magnesium 2.2, Total Bilirubin 0.4, AST 12 L, ALT 31, Alkaline Phosphatase 69
--- NOTE | 2021-12-25 14:49 | RAD REPORT ---
EXAM DESCRIPTION: CT - Thorax W/ Con - 12/25/2021 2:32 pm CLINICAL HISTORY: Shortness of breath COMPARISON: None TECHNIQUE: Computed axial tomography of the chest was obtained. 100 cc Isovue 300 was administered i ntravenously. All CT scans are performed using dose optimization technique as appropriate and may include automated exposure control or mA/KV adjustment according to patient size. FINDINGS: The lungs appear clear. Several mediastinal lymph nodes measure up to 1 centimeter. No hilar lymphadenopathy Minimal pleural effusions. A pericardial effusion is not seen. Diffuse edema within the right breast tissue. Subcentimeter axillary lymph nodes IMPRESSION: Mild mediastinal lymphadenopathy presumably reactive in nature Diffuse edema within the right breast tissue may represent a cellulitis, lymphatic obstruction or inf lammatory carcinoma. This should be correlated clinically. Diagnostic mammogram with ultrasound may b e helpful for further evaluation
[2021-12-25] MEDS ORDERED: FUROSEMIDE 40 MG/4 ML VIAL IV SCH (15:38)
[2021-12-25] MEDS ORDERED: ATORVASTATIN 20 MG TAB PO SCH (21:00)
[2021-12-25] MEDS: HOME MED 1 EA UNK (Sucroferric Oxyhydroxide [Velphoro] 500 MG Tab.Chew) PO SCH (21:00)
[2021-12-25] MEDS: FUROSEMIDE 100 MG/10 ML VIAL IV SCH (21:25)
[2021-12-25] MEDS: HYDRALAZINE HCL 25 MG TABLET PO SCH (21:27)
[2021-12-25] MEDS: ATORVASTATIN 20 MG TAB PO SCH (21:27)
[2021-12-26 03:48] LABS: Absolute Lymphocytes (CBC) 0.6 K/uL (0.7-4.9); Hematocrit 28.1 % (39.6-49.0); Lymphocytes % 6.1 % (15.3-44.8); MCV 104.8 fL (80-100); MPV 8.5 fL (7.6-11.3); RBC Red Blood Cell Count 2.68 M/uL (4.33-5.43)
[2021-12-26 04:08] LABS: Potassium 5.2 mmol/L (3.5-5.1)
[2021-12-26] MEDS: VITAMIN D 5,000 UNIT CAP PO SCH (08:26)
[2021-12-26] MEDS: SERTRALINE HCL 50 MG TAB PO SCH (08:26)
[2021-12-26] MEDS: lisinopriL 20 MG TAB PO SCH (08:26)
[2021-12-26] MEDS: allopurinoL 300 MG TAB PO SCH (08:26)
[2021-12-26] MEDS: ASPIRIN EC 81 MG TAB PO SCH (08:26)
[2021-12-26] MEDS: HYDRALAZINE HCL 25 MG TABLET PO SCH ×3 (08:27→20:41)
[2021-12-26] MEDS: AMLODIPINE 5 MG TAB PO SCH (08:27)
[2021-12-26] MEDS: FUROSEMIDE 100 MG/10 ML VIAL IV SCH ×3 (08:27→20:43)
[2021-12-26] MEDS: carvediloL 6.25 MG TAB PO SCH ×2 (08:27→20:41)
[2021-12-26] MEDS: HOME MED 1 EA UNK (Sucroferric Oxyhydroxide [Velphoro] 500 MG Tab.Chew) PO SCH ×3 (09:00→20:48)
--- NOTE | 2021-12-26 11:22 | PN ---
Date of Progress Note: 12/26/2021 Subjective: The patient was admitted with over volume, shortness of breath. The patient had CT with contrast yesterday. Had mouth ulcer. The patient seen on dialysis today. Physical Examination: Vital Signs: Blood pressure 142/66, pulse of 90, afebrile. Chest: Decreased entry bilateral base. Heart: S1, S2. Systolic murmur. Abdomen: Morbidly obese. Could not appreciate any organomegaly. Extremities: +2 edema. Neuro: Alert. No focality. Laboratory Data: WBC 9.8, H and H of 9.3/28.1. Sodium 136, potassium 5.2, bicarb 27, BUN 91, creati nine 11. Calcium 7.9, magnesium 2.1, phosphorus 5.4. BNP 8253. CT chest showing mediastinal lympha denopathy, possible reactive diffuse edema within the right breast, possible cellulitis with lymphati c obstruction or inflammatory carcinoma. Swelling on the left tongue with ulceration with mediastina l lymphadenopathy, pulmonary edema. Assessment And Plan: 1.End-stage renal disease, over volume. I am going to go ahead and do dialysis today. We will do a nother session of dialysis tomorrow to establish better volume control, and we will follow up the pat ient closely. 2.Hypertension, controlled optimal. We will continue to utilize blood pressure for more ultrafiltra tion. 3.Over volume with respiratory distress. Continue daily dialysis to establish better volume control . 4.Hyperkalemia. The patient is going to be dialyzed on low-potassium bath. 5.Anemia of chronic kidney disease. Resume LAMAR. 6.Tongue ulcer, mediastinal lymphadenopathy. We will follow up with ENT and biopsy. GIANFRANCO/CHRIS Voice ID: [id number] Report ID: [id number]
[2021-12-26] MEDS: EPOETIN 4,000 UNIT/ML VIAL IV SCH (12:30)
[2021-12-26] MEDS: HEPARIN 5000 UNIT/ML 1 ML VIAL SQ SCH ×2 (14:00→20:43)
[2021-12-26] MEDS: ATORVASTATIN 20 MG TAB PO SCH (20:42)
[2021-12-27 03:59] LABS: Albumin 3.2 g/dL (3.4-5.0); Phosphorus 6.5 mg/dL (2.5-4.9); Potassium 4.9 mmol/L (3.5-5.1)
[2021-12-27] MEDS: HYDRALAZINE HCL 25 MG TABLET PO SCH ×3 (09:00→20:28)
[2021-12-27] MEDS: HOME MED 1 EA UNK (Sucroferric Oxyhydroxide [Velphoro] 500 MG Tab.Chew) PO SCH ×3 (09:00→20:28)
[2021-12-27] MEDS: carvediloL 6.25 MG TAB PO SCH ×2 (09:00→20:28)
[2021-12-27] MEDS: FUROSEMIDE 100 MG/10 ML VIAL IV SCH ×5 (09:00→22:09)
[2021-12-27] MEDS: AMLODIPINE 5 MG TAB PO SCH (09:00)
[2021-12-27] MEDS: lisinopriL 20 MG TAB PO SCH (09:00)
[2021-12-27] MEDS: SERTRALINE HCL 50 MG TAB PO SCH (09:03)
[2021-12-27] MEDS: ASPIRIN EC 81 MG TAB PO SCH (09:03)
[2021-12-27] MEDS: allopurinoL 300 MG TAB PO SCH (09:03)
[2021-12-27] MEDS: VITAMIN D 5,000 UNIT CAP PO SCH (09:03)
[2021-12-27] MEDS: HEPARIN 5000 UNIT/ML 1 ML VIAL SQ SCH ×2 (09:55→20:27)
[2021-12-27 10:25] VITALS: O2SAT 98
[2021-12-27] MEDS: EPOETIN 4,000 UNIT/ML VIAL IV SCH (11:00)
[2021-12-27] MEDS: ATORVASTATIN 20 MG TAB PO SCH (20:27)
--- NOTE | 2021-12-28 00:37 | PN ---
Date of Progress Note: 12/27/2021 Chief Complaint: End-stage renal disease, fluid overload, congestive heart failure exacerbation seco ndary to fluid overload, and hyperkalemia. Subjective: The patient is undergoing dialysis today. Patient is tolerating treatment. Ultrafiltra tion was obtained to treat fluid overload. Patient remained fluid overloaded, has extremity edema. Dyspnea has improved. Review of Systems: Denies fever or chills. Physical Examination: Lungs: Decreased breath sounds bilaterally. Heart: S1, S2. Abdomen: Soft, obese. Extremities: 2+ edema. Impression And Plan: 1.End-stage renal disease, volume overload. The patient will continue dialysis with ultrafiltration . Encouraged to adhere to p.o. fluid restriction. Monitor fluid balance. 2.Hypertension, controlled. Continue current medication. Monitor blood pressure during dialysis. Adjust ultrafiltration goal to prevent intradialytic hypotension. 3.Hyperkalemia. The patient is receiving dialysis to treat hyperkalemia. Continue low-potassium di et. 4.Anemia of chronic kidney disease. Continue LAMAR. Monitor hemoglobin level. DINESH/CHRIS Voice ID: [id number] Report ID: [id number]
[2021-12-28 05:21] LABS: Albumin 3.2 g/dL (3.4-5.0)
[2021-12-28 06:33] VITALS: BMI 47.8
[2021-12-28] MEDS: allopurinoL 300 MG TAB PO SCH (09:00)
[2021-12-28] MEDS: carvediloL 6.25 MG TAB PO SCH (09:00)
[2021-12-28] MEDS: AMLODIPINE 5 MG TAB PO SCH (09:00)
[2021-12-28] MEDS: VITAMIN D 5,000 UNIT CAP PO SCH (09:00)
[2021-12-28] MEDS: ASPIRIN EC 81 MG TAB PO SCH (09:00)
[2021-12-28] MEDS: SERTRALINE HCL 50 MG TAB PO SCH (09:00)
[2021-12-28] MEDS: HOME MED 1 EA UNK (Sucroferric Oxyhydroxide [Velphoro] 500 MG Tab.Chew) PO SCH (09:00)
[2021-12-28] MEDS: HYDRALAZINE HCL 25 MG TABLET PO SCH (09:00)
[2021-12-28] MEDS ORDERED: CEFTRIAXONE 1,000 MG in NA CHLORIDE 0.9% 50 ML IVPB SCH (09:00)
[2021-12-28] MEDS: lisinopriL 20 MG TAB PO SCH (09:00)
[2021-12-28 09:21] VITALS: BP 125/58
[2021-12-28] MEDS: EPOETIN 4,000 UNIT/ML VIAL IV SCH (12:30)
[2021-12-28 14:19] VITALS: TEMP 98.5
--- NOTE | 2021-12-28 16:00 | P.PN ---
Subjective Date of Service: 12/28/21 Chief Complaint: Shortness of breath and generalized swelling. Physical Examination - Vital Signs Temperature: 98.5 F Blood Pressure: 125/58 Pulse: 94 Respirations: 18 Pulse Ox (%): 99 Assessment And Plan Physician Review: Patient Assessed, Agree with Above Assessment and Plan
--- NOTE | 2021-12-28 16:11 | RAD REPORT ---
EXAM DESCRIPTION: US - BREAST/AXILLA, COMPLETE - 12/28/2021 2:47 pm CLINICAL HISTORY: Right breast/ chest mass COMPARISON: CT chest December 25 FINDINGS: Sonographic evaluation of the right-side chest shows prominent edematous tissues in the ri ght breast and lateral right chest region. This edema pattern matches the December 25 imaging. At sono graphy no abscess or drainable fluid collections seen. No defined mass identifiable. IMPRESSION: Edematous soft tissues in the frontal lateral aspect of the right breast/chest matching the CT study. No abscess or drainable fluid collection.
--- NOTE | 2021-12-31 13:53 | CON ---
Date of Consultation: 12/29/2021 Brief History Of Present Illness: The patient is a 46-year-old male with past medical history of ESR D, obesity, hyperlipidemia, sleep apnea, anxiety disorder, hypertension, maintained on hemodialysis, who presents with shortness of breath approximately beginning 4 days before his presentation to the E [facility] on 12/25/2021. He had ran out of his diuretic approximately a week prior to that and his symptoms precipitated and as such, he noted significant generalized swelling over his entire body consistent w ith anasarca. Shortness of breath was the most notable of his symptoms and as such, he came to the e mergency room with the above-stated complaints. He was noted to have a hoarse voice as well and it w as noted that he had some swelling of his right chest as well. Past Medical History: Hypertension, obesity, hyperlipidemia, obstructive sleep apnea, anxiety disord er, hypertension, end-stage renal disease. Past Surgical History: Includes knee surgery, placement of a tunneled hemodialysis catheter. Allergies: NO KNOWN DRUG ALLERGIES. Home Medications: Include allopurinol, Norvasc, atorvastatin, vitamin D, Lasix, Coreg. Family History: Significant for cancer, lung disease, kidney disease. Social History: He denies smoking, alcohol, recreational drug use. Review of Systems: Ten point review of systems other than HPI, currently feels better. He does still admit to generaliz ed swelling. The shortness of breath has improved with dialysis. Physical Examination: General: He is awake, alert, oriented. Psychiatric: He is appropriate, conversive. HEENT: Normocephalic. Sclerae anicteric. His mucous membranes are moist. Oropharynx is clear. Neck: Supple without JVD. Chest: Expansion and excursion. Focused examination of the chest shows swelling and generalized swe lling of bilateral chest areas consistent with fluid edema. No redness. No tenderness. No findings concerning for any inflammatory and/or malignant processes on gross examination. Cardiovascular: Regular rate and rhythm. Laboratory Data: He had a laboratory exam, which reveals a white blood cell count of 9.8, hemoglobin is 9.3, hematocrit 20.1, platelet count was 218. His sodium 136, potassium 5.0, chloride 98, carbon dioxide 26, BUN is 78, creatinine 11.6, his glucose is 95, phosphorus is 8.0. He had imaging perfor med, which included a CT soft tissue neck and CT chest. The soft tissue neck was officially read as high-density material seen along the left tongue base, tonsillar region is of unclear etiology. Dire ct visualization may be a value. Mildly prominent lymph nodes are seen in the upper mediastinum. Mi ld pulmonary edema also suspected in the upper lungs. Left-sided venous catheter is in place. A li nt is present in the superior vena cava. Additionally, he had a CT of the chest, which was officiall y read as mild mediastinal lymphadenopathy, presumably reactive in nature. Diffuse edema in the righ t breast tissue may represent cellulitis, lymphatic obstruction or inflammatory carcinoma should be c orrelated clinically. Diagnostic mammography with ultrasound may be helpful for further evaluation. Assessment And Plan: This is a 46-year-old male, who comes in with anasarca likely due to fluid imba adria due to his preexisting end-stage renal disease and dialysis dependence. 1.Continue medical management per primary medical team. 2.Continue renal replacement therapy with fluid management and recommend removal/diuresis of some of the excess fluid, which might be contributing to his overall symptoms. 3.Recommend ENT consultation for examination of his oropharyngeal area to rule out any possible chris gnancy and/or other disease process, which might be contributing to the abnormal appearance on his ne ck CT. 4.With respect to his chest swelling, I do not find any evidence of dermal lymphatic congestion or i nflammatory breast disease based on gross examination; however, I recommend mammography. I was infor med the hospital does not perform inpatient mammography and as such, the patient will have to obtain this as an outpatient. I have recommended ultrasound; however, that was also recommended to be done as an outpatient from the Radiology Department here. As such, I have informed the patient that he sh ould follow up with me within 1 week to have the mammogram ordered and scheduled to ensure no maligna ncy is present based on imaging; however, I think the likelihood is low given his overall risk factor s and appearance on his physical examination. I have explained risks, benefits, and alternatives of the above stated plan including, but not limited to possible malignancy, need for further workup, and the patient agrees to proceed as indicated. Thank you for this interesting consult. DEANDRE/CHRIS Voice ID: [id number] Report ID: [id number]
== END 2021-12-28 16:20 | disposition home or self-care (01) | DRG 640 ==
LOC: ER 05:18 → ERHOLD 08:33 → 4TH 15:23 → OBSVTOIN 12-26 12:59
PROVIDERS: ADMIT Hospitalist; ATTEND Hospitalist
PROC: 5A09457 Assistance with Respiratory Ventilation, 24-96 Consecutive Hours, Continuous Positive Airway Pressure (ICD-10-PCS; principal; 2021-12-25)
PROC: 5A1D70Z Performance of Urinary Filtration, Intermittent, Less than 6 Hours Per Day (ICD-10-PCS; 2021-12-26)
DX: E87.70 Fluid overload, unspecified (principal); J96.90 Respiratory failure, unspecified, unspecified whether with hypoxia or hypercapnia; N18.6 End stage renal disease; I12.0 Hypertensive chronic kidney disease with stage 5 chronic kidney disease or end stage renal disease; Z68.42 Body mass index [BMI] 45.0-49.9, adult; E66.01 Morbid (severe) obesity due to excess calories; D63.1 Anemia in chronic kidney disease; E87.5 Hyperkalemia; N25.0 Renal osteodystrophy; E78.5 Hyperlipidemia, unspecified; G47.30 Sleep apnea, unspecified; K14.0 Glossitis; F41.9 Anxiety disorder, unspecified; M10.9 Gout, unspecified; D63.8 Anemia in other chronic diseases classified elsewhere; M89.8X9 Other specified disorders of bone, unspecified site; R77.8 Other specified abnormalities of plasma proteins; R59.1 Generalized enlarged lymph nodes; R49.0 Dysphonia; Z99.2 Dependence on renal dialysis; Z79.82 Long term (current) use of aspirin; Z99.89 Dependence on other enabling machines and devices; Z79.899 Other long term (current) drug therapy; Z20.822 Contact with and (suspected) exposure to COVID-19
CPT/HCPCS: 36415; 70490; 71045; 71260; 76641; 80048; 80069; 80076; 83735; 83880; 84100; 84484; 85025; 85610; 85730; 87040; 87070; 87081; 87804; 90935; 93005; 94660; 94760; 96374; 99285; G0378; J1644; J1940; Q5105; Q9967; U0003

== ENCOUNTER → 2022-08-07 | Day surgery (SDC) | payer BC, OTHER ==
[~2022-08-07] MED LIST: EPHEDRINE SULF 50 MG/ML VIAL ONE; GLYCOPYRROLATE 0.2 MG/ML SYR ONE; LIDOCAINE VISCOUS 2% SOLN 15 ML UDC ONE; NA CHLORIDE 0.9% 1,000 ML ONE; Ringers Lactate 1,000 ML IV ONE; propofoL 200 MG/20 ML VIAL IV ONE
[2022-08-07 08:39] LABS: Potassium 7.2 mEq/L (3.5-5.1)
[2022-08-07 09:47] VITALS: BP 95/44; TEMP 97.6; O2SAT 99
== END ==
LOC: OR 06:30
PROVIDERS: ATTEND Internal Medicine Gastroenterology
DX: Z12.11 Encounter for screening for malignant neoplasm of colon (principal); Z53.8 Procedure and treatment not carried out for other reasons; R12 Heartburn; Z80.0 Family history of malignant neoplasm of digestive organs
CPT/HCPCS: 80048; 36415; J2704; J7120; J7030

== ENCOUNTER 2022-08-14 07:42 | Day surgery (SDC) | payer BC, OTHER ==
[2022-08-14] MEDS ORDERED: NA CHLORIDE 0.9% 500 ML ONE (08:12)
[2022-08-14 10:53] VITALS: TEMP 97.3; O2SAT 100
[2022-08-14 10:54] VITALS: BP 99/51
[2022-08-14] MEDS ORDERED: GLUCAGON 1 MG/VIAL ONE (12:25)
== END 2022-08-14 10:50 | disposition home or self-care (01) ==
LOC: OR 07:42
PROVIDERS: ATTEND Internal Medicine Gastroenterology
PROC: 0DB68ZX Excision of Stomach, Via Natural or Artificial Opening Endoscopic, Diagnostic (ICD-10-PCS; 2022-08-14)
PROC: 0DBP8ZX Excision of Rectum, Via Natural or Artificial Opening Endoscopic, Diagnostic (ICD-10-PCS; principal; 2022-08-14 09:30)
PROC: 0DBP8ZX Excision of Rectum, Via Natural or Artificial Opening Endoscopic, Diagnostic (ICD-10-PCS; 2022-08-14 09:30)
DX: Z12.11 Encounter for screening for malignant neoplasm of colon (principal); Z80.0 Family history of malignant neoplasm of digestive organs; R12 Heartburn; K64.8 Other hemorrhoids; K29.50 Unspecified chronic gastritis without bleeding; K63.5 Polyp of colon
CPT/HCPCS: 36415; 88312; 84132; 88305; 45380 ×2; 43239; J1610; J7040